=== PATIENT | female | born 2000 | race Hispanic/Latino ===

== ENCOUNTER → 2024-10-17 10:23 | Outpatient (CLI) | payer OTHER, SELFPAY ==
[2024-10-17 12:00] LABS: Natera Collection Specimen Collected
[2024-10-17 12:06] LABS: Add Manual Diff / Slide Review NO; Basophils Absolute Auto 0 /uL (0-100); Basophils Percent Auto 0.5 % (0-2); Eosinophils Absolute Auto 100 /uL (0-450); Eosinophils Percent Auto 1.2 % (2-4); Hemoglobin 12.6 g/dL (12.0-16.0); Lymphocytes Absolute Auto 2400 /uL (1100-4500); Lymphocytes Percent Auto 26.7 % (25-40); Mean Corpuscular HGB Conc 36.1 % (30-36); Mean Corpuscular Hemoglobin 33.4 PG (26-34); Mean Corpuscular Volume 92.3 fL (80-100); Monocytes Absolute Auto 600 /uL (0-900); Monocytes Percent Auto 6.4 % (3-14); Neutrophils Absolute Auto 5800 /uL (1500-7000); Neutrophils Percent Auto 65.2 % (50-75); Platelet Count 254 X10^3/uL (150-400); Red Blood Cell Count 3.79 X10^6/uL (4.0-5.2); Red Cell Distribution Width 12.6 % (11.6-14.8)
[2024-10-18 15:19] LABS: Hepatitis B Surface Antigen NEGATIVE s/c (NEGATIVE); Rubella Antibody IgG 37.2 IU/mL (>15)
[2024-10-18 15:35] LABS: HIV 1 & 2 Ab/Ag 4th Gen Combo NEGATIVE (NEGATIVE); Hep C Virus Ab w/Reflex Quant NEGATIVE s/c (NEGATIVE)
[2024-10-19 03:36] LABS: Varicella IgG Antibody Reactive (Non Reactive)
== END ==
PROVIDERS: PCP Family Medicine; Referring Provider Family Medicine; Visit Provider Student in an Organized Health Care Education/Training Program
DX: Z34.01 Encounter for supervision of normal first pregnancy, first trimester (principal); Z36.0 Encounter for antenatal screening for chromosomal anomalies
CPT/HCPCS: 36415; 80055; 86787; 86803; 86850; 86900; 86901; 87086; 87389

== ENCOUNTER → 2024-11-16 08:25 | Outpatient (CLI) | payer OTHER, SELFPAY ==
[2024-11-18 19:10] LABS: Gest Age on Col Date 16.3 weeks (.); OSBR Risk 1IN 6916 (.)
== END ==
PROVIDERS: PCP Family Medicine; Referring Provider Obstetrics & Gynecology; Visit Provider Obstetrics & Gynecology
DX: Z34.02 Encounter for supervision of normal first pregnancy, second trimester (principal); Z3A.16 16 weeks gestation of pregnancy
CPT/HCPCS: 36415; 82105

== ENCOUNTER → 2024-12-13 08:28 | Outpatient (CLI) | payer OTHER, SELFPAY ==
--- NOTE | 2024-12-13 08:29 | DI.US.S_ITS ---
PROCEDURE: US OB >= 14 WEEKS FETUS INDICATIONS: ANATOMY OUTSIDE/PRIOR DATING DATA: Last menstrual period (LMP): July 26, 2019. LMP-based estimated date of delivery (JUDITH): May 01, 2025. TECHNIQUE: Real-time scanning was performed of the fetus, with image documentation and biometric measurements. Endovaginal scanning: Not performed COMPARISON: [facility], , OB <= 14 WEEKS FETUS, 10/17/2024, 10:28. FINDINGS: General: A single living intrauterine gestation is present. Presentation: Breech. Placenta: Placental position is posterior , without previa. Amniotic fluid index: 16.1 cm, normal range is 5-24 cm. Single deepest vertical pocket is 4.8 cm. heart rate: 145 beats per minute. Maternal cervical canal: 2.7 cm long. Normal lower limit is 2.5 cm. biometrics: Biparietal diameter: 4.6 cm, 20 weeks and 0 days Head circumference: 16.8 cm, 19 weeks and 3 days Abdominal circumference: 15.4 cm, 20 weeks and 4 days Femur length: 3.1 cm, 19 weeks and 5 days Clinically estimated gestational age: 20 weeks and 1 day Composite gestational age from present scan: 20 weeks and 0 days Estimated weight and percentile: 331 g, 42nd percentile Anatomic survey: Neuro: Ventricles are non-dilated at less than 10 mm. Cisterna magna is normal at 3-11 mm. Cerebellum is normal in size and morphology. Nuchal skin fold: Normal at less than 6 mm between 14-21 weeks gestational age. Face: Nose and lips, facial profile are normal. Spine: No evidence for spina bifida. Heart: 4-chambered heart is present, with normal ventricular outflow tracts. Diaphragm: Diaphragm is intact. Stomach: Left-sided stomach is present. Kidneys: No hydronephrosis. Normal is less than 5 mm in 2nd trimester, less than 7 mm in 3rd trimester. Cord: 3-vessel cord has orthotopic insertion. Bladder: Normal in size. Extremities: All 4 extremities identified. IMPRESSION: Single living intrauterine gestation with estimated sonographic gestational age of approximately 20 weeks and 0 days with estimated weight of approximately 331 g (42nd percentile). Normal routine second-trimester anatomy screening survey. We strive to produce accurate, complete, and clear reports of imaging services. To assist us in improving patient care, this report was composed using standard report templates and voice recognition software. Therefore, it may contain abnormal punctuation, insertions and/or omissions. Occasional wrong-word or sound-alike substitutions may occur. Though we review the report and make efforts to correct it, we do recommend that the report be read carefully in proper context to recognize any text inaccuracies. Dictated by: Crescencio Joe M.D. on 12/13/2024 at 17:29 Approved by: Crescencio Joe M.D. on 12/13/2024 at 17:32
== END ==
LOC: US 08:29
PROVIDERS: PCP Family Medicine; Referring Provider Student in an Organized Health Care Education/Training Program; Visit Provider Obstetrics & Gynecology
DX: Z34.02 Encounter for supervision of normal first pregnancy, second trimester (principal); Z3A.20 20 weeks gestation of pregnancy
CPT/HCPCS: 76811

== ENCOUNTER → 2025-01-16 08:14 | Outpatient (CLI) | payer OTHER, SELFPAY ==
[2025-01-16 09:29] LABS: Glucose Fasting Gestational 84 mg/dL (76-95)
[2025-01-16 10:24] LABS: Glucose 1 Hour Gest 181 mg/dL (76-180)
[2025-01-16 11:13] LABS: Glucose 2 Hour Gest 176 mg/dL (76-155)
[2025-01-16 11:26] LABS: Glucose Tol Interp,Gestational INTERPRETATION
[2025-01-16 12:36] LABS: Glucose 3 Hour Gest 153 mg/dL (76-140)
== END ==
PROVIDERS: PCP Family Medicine; Referring Provider Obstetrics & Gynecology; Visit Provider Obstetrics & Gynecology
DX: R73.09 Other abnormal glucose (principal)
CPT/HCPCS: 36415; 82951; 82952

== ENCOUNTER → 2025-02-03 14:03 | Outpatient (CLI) | payer OTHER, SELFPAY ==
--- NOTE | 2025-02-03 17:12 | DIAB.GDA ---
Initial Gestational Diabetes Assessment Name: Kirti Gann Date: 02/03/25 Time: 210-3p Dx: Gestational Diabetes Provider: Rito/Monae JUDITH: 05/01/25 Weeks: 27-28 Valeria presents for initial GDm visit, accompanied by her mother, Maru. Endorses rich h/o T2DM and GDM. Mother had GDM with 2/3 of her pregnancies. Reports occasional nausea r/t Dec 2023 appendix burst. Was hospitalized. Endorses feeling shaky, foggy, lightheaded, weak with BG in the 70-88mg/dl. Unclear if this is r/t long periods of fasting and/or rebound lows after elevations based on her diet recall of sweetened beverages at times. States she is trying to spread out and eat more frequently to avoid symptoms. May benefit a CGM sample. Moving in with mother, which has increased eating out at this time with moving duties. Diet Recall: 1030a: 4oz orange juice, 1oz cereal dry, applesauce grazing snacks: cashews, jerkey, apple and pb 105p: slice of pizza, snack pack with nuts/cheese/ fruit grazing snacks: same as above 6p: hamburger helper x 1c with salad and 6oz regular soda OR Burger with small or medium ladd +/- small soda or shake 12a: apple sauce cashews, jerky water 32-48oz protein shake 1 per day sometimes 12-16oz sweetened coffee Choosing oatmilk over lactose milk. with lactose allergy Anthropometrics: Ht: 61 Wt: 132# 01/2025 Prepregnancy wt: 106# Physical Activity: Not discussed today. Reported walking 5 days per week in paperwork. Self-Monitoring Blood Glucose: Checking FBg and 2 hour pc. Wakes up late and often misses the first meal/reading. All in goal. Date Pre Post Pre Post Pre Post HS 01/31 83 111 96 02/01 90 110 102 02/02 77 118 101 02/03 93 91 Diabetes Medications: none Pertinent Labs: Screen: 156 H OGTT: 84, 181 H, 176H, 153H Nutrition Rx: Carbohydrates: Meal: 45-60g lunch and dinner; 30-45 breakfast Snack: 15-30g Nutrition Diagnosis: Altered nutrition related lab value r/t GDM dx aeb recent OGTT Undesireable food choices r/t beverage choices aeb diet recall with regular soda intake Nutrition and food related knowledge deficit r/t newly dx GDm aeb OGTT and pt report Intervention: This participant was very receptive. Provided appropriate educational handouts. Discussed the following topics: GDM pathophysiology and impact of hyperglycemia on mom and baby Risk for T2DM for mom and baby in the future Ways to reduce risk T2DM Plate Method, meal timing, carb counting, pairing macronutrients and spreading out CHO for better BG management Blood glucose goals (FBG: <95 and 1 hour <140 mg/dL or 1 hour <120 mg/dl); importance of checking (FBG and pc) Impact of macronutrients on blood glucose Recommended servings for carbohydrates at meals and snacks Brainstormed appropriate meal plan based on her food preferences Role of physical activity and following provider guidelines for safety Goals: Add protein to breakfast consistently Avoid sweetened beverages Follow-up: ISAIAH ASTUDILLO follow-up in one week Ngozi Mon RDN, BAUDILIO Certified Diabetes Care and Ecological Technical Officer T: [phone] F: [phone] [email or web address] Thank you for this referral
== END ==
LOC: DIET 14:04
PROVIDERS: PCP Family Medicine; Referring Provider Obstetrics & Gynecology
DX: O24.419 Gestational diabetes mellitus in pregnancy, unspecified control (principal); Z71.3 Dietary counseling and surveillance; Z3A.27 27 weeks gestation of pregnancy; Z83.3 Family history of diabetes mellitus
CPT/HCPCS: 97802

== ENCOUNTER → 2025-02-08 12:51 | Outpatient (CLI) | payer OTHER, SELFPAY ==
--- NOTE | 2025-02-09 11:14 | DIAB.GDFU ---
Follow-up Gestational Diabetes Assessment Name: Kirti Gann Date: 02/08/25 Time: 105-150p Dx: Gestational Diabetes Provider: Monae JUDITH: 05/01/25 Weeks: 28 Valeria presents for GDm visit, accompanied by her mother, Maru. Endorses rich h/o T2DM and GDM. Mother had GDM with 2/3 of her pregnancies. Reports today is her last day of moving. With moving there has been more eating out. When BG is elevated postprandially it is r/t eating out. States she has not noticed any difference in how she feels or BG with or without sugar beverages. Did have elevation after chicken fast food meal and soda intake. Has added protein to breakfast. Had an episode of BG of 145mg/dl 10 min after breakfast and felt fatigue and dizzy (parfait breakfast purchased on the go) Diet Recall: 1030a: 4oz orange juice, eggs or sausage OR pb toast grazing snacks: cashews, jerkey, apple and pb 1-2p: eating out OR sandwich BLT with fruit or chips or apple sauce grazing snacks: same as above 6p: eating out or hamburger or steak OR lean cuisine frozen meal OR spinach cheese spanakopita 12a: apple sauce cashews, jerky water 32-48oz protein shake 1 per day sometimes 12-16oz sweetened coffee Choosing oatmilk over lactose milk. with lactose allergy Anthropometrics: Ht: 61 Wt: 132# 01/2025 Prepregnancy wt: 106# Physical Activity: Not discussed today. Reported walking 5 days per week in paperwork. Self-Monitoring Blood Glucose: Checking FBg and 2 hour pc. All FBG in goal. Two missing FBG due to not fasting after late snack. Elevations often r/t eating out. One was after protein shake, but RD speculates that earlier morning snacks may have caused the 139mg/dl. Interested in CGm sample to see how sugar beverages impact BG . Today Date Pre Post Pre Post Pre Post HS 02/03 93 91 02/04 85 86 139 103 02/05 80 95 92 02/06 89 145 95 128 02/07 125 111 02/08 84 131 Last Visit Date Pre Post Pre Post Pre Post HS 01/31 83 111 96 02/01 90 110 102 02/02 77 118 101 02/03 93 91 Diabetes Medications: none Pertinent Labs: Screen: 156 H OGTT: 84, 181 H, 176H, 153H Nutrition Rx: Carbohydrates: Meal: 45-60g lunch and dinner; 30-45 breakfast Snack: 15-30g Nutrition Diagnosis: Altered nutrition related lab value r/t GDM dx aeb recent OGTT Undesireable food choices r/t beverage choices aeb diet recall with regular soda intake- in progress Nutrition and food related knowledge deficit r/t newly dx GDm aeb OGTT and pt report - in progress Excessive CHO intake r/t eating out for convenience while moving aeb pt report and BG log Intervention: This participant was very receptive. Provided appropriate educational handouts. Discussed the following topics: Recommended servings for carbohydrates at meals and snacks Label reading for net CHO Eating out options and impact on BG Encouraged food log when BG over goal CGM education, precautions, and use Impact of sugar beverages on BG Goals: Add protein to breakfast consistently - met Avoid sweetened beverages - in progress Limit eating out- new Write down food when BG elevated- new Try CGM sample- new Follow-up: ISAIAH ASTUDILLO follow-up in one week remotely and in 2 weeks in person Ngozi Mon RDN, BAUDILIO Certified Diabetes Care and Joint Sealer T: [phone] F: [phone] [email or web address] Thank you for this referral
== END ==
LOC: DIET 12:52
PROVIDERS: PCP Family Medicine; Referring Provider Family Medicine
DX: O24.419 Gestational diabetes mellitus in pregnancy, unspecified control (principal); Z3A.28 28 weeks gestation of pregnancy; Z83.3 Family history of diabetes mellitus
CPT/HCPCS: 97803

== ENCOUNTER 2025-02-15 19:26 | Observation (INO) | payer OTHER, SELFPAY ==
--- NOTE | 2025-02-15 20:10 | P.HPOB_ITS ---
OB HPI Date/Time Date of admission: 02/15/25 Date Patient Seen: 02/15/25 Time Patient Seen: 20:11 History of Present Condition Chief complaint: possible early labor JUDITH Calculator 2 Estimated Delivery Date Method Current WG Current Estimate 05/01/25 LMP (Certain) 29w 2d Other Estimates 05/01/25 Ultrasound #1 29w 2d Estimated Gestational Age (weeks): 29.2 : 1 Narrative: Patient is a 24yo G1 @ 29w2d presents to L&D with cramping/contractions that started yesterday and noticed increased discharge today. denies Leaking of fluid, vaginal bleedig and reports good movement. denies dysuria, hematuria, frequency. denies fevers/chills. care: good care Dating criteria OB: LMP confirmed by 1st trimester US Ultrasounds: normal mid trimester US Obstetrical complications: gestational diabetes Medical complications OB: psychiatric (depression/anxiety) Preadmission Labs Last OB Lab Results: 2 Blood Type A Positive 10/17/24, 11:00 Antibody Screen Negative 10/17/24, 11:00 Hct, (36-46) 35.3 % L Today, 20:55 Hgb, (12.0-16.0) 12.1 g/dL Today, 20:55 Hep Bs Antigen, (NEGATIVE) Negative s/c 10/17/24, 11: 00 Hepatitis C Antibody, (NEGATIVE) Negative s/c 5, 11:00 Rubella Antibody, (>15) 37.2 IU/mL 10/17/24, 11:00 VZV IgG Antibody, (Non Reactive) Reactive 5, 11:00 Glucose 1 Hr 50 gm, (76-139) 156 mg/dL H 01/10/25, 1 0:38 -: Chlamydia screen: unknown and Gonorrhea screen: unknown Genetic Screens: Cell-free DNA: Normal Evaluation Evaluation Baseline heart rate: 145 Variability: Moderate (6-25) monitor accelerations: Present Monitor Decelerations: Absent Contraction Frequency (minutes): 3 Uterine Contraction Intensity: Mild Category of Tracing: Reactive Status: Category l Dilation (cm): 0 Effacement (%): 60 Dilation: Closed Effacement: 60-70% station: -3 Position of cervix: mid Consistency: medium Vu score: 4 [facility] Medical History (Updated 02/07/25 @ 16:54 by Katie Mcwilliams DO) Factor 5 Leiden mutation, heterozygous Ruptured appendix (~12/2023) Surgical History (Updated 08/30/24 @ 10:09 by Jacinta Chang RN) History of appendectomy Family History (Updated 08/30/24 @ 10:21 by Jacinta Chang, RN) Mother Diabetes mellitus Ovarian cyst Gestational diabetes Grandmother Pacemaker Diabetes mellitus Family/Other Diabetes mellitus Father Diabetes mellitus Hypertension Aunt Ectopic Grandmother Factor V Leiden Social History marital status: number of children: 0 household members: spouse and friend(s) lives independently: Yes caregiver/support person: No housing: [facility]) pets and animals: Yes (cats, dog) education level: high school 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[employer]) current occupational exposures/hazards: No special emili needs: No travel history: recent (domestic only) seatbelt use: always water heater temp set < 120 deg: Yes working smoke detector in home: Yes fire extinguisher in home: Yes carbon monox detector in home: Yes firearms in home: No do you feel safe at home: Yes second hand exposure: No alcohol intake: former (very occasionally when not ) substance use type: does not use during the past year weight has: decreased > 10 lbs (lost ~15 lb w/ appendicitis, back to around baseline now) well-balanced diet: about half the time daily servings fruits/ve-4 caffeine: Yes (occasional dirty maria e (1 shot espresso in maria e latte)) Type(s) of exercise: walking frequency: daily Meds Home Medications and Allergies Home Medications ?Medication ?Instructions ?Recorded ?Confirmed ?Type [id number] 400 mcg-om3 35 mg-dha 25 tab PO 08/30/24/ History mg-epa 5 mg-fish oil chewable tablet quetiapine 25 mg tablet 25 mg PO BEDTIME 08/30/24 History metoclopramide HCl 5 mg tablet 5 mg PO QACHS PRN nause a and 09/04/24 01/10/25 Rx vomiting #30 tabs ondansetron 8 mg disintegrating 8 mg PO Q8H PRN nausea and 11/16/24 01/10/25 Rx tablet vomiting #20 tabs blood sugar diagnostic (Blood #120 ea 01/30/25 Rx Glucose Test strips) blood-glucose meter (Blood Glucose #1 ea 01/30/25 Rx Monitoring kit) lancets #120 ea 01/30/25 Rx sertraline 50 mg tablet 50 mg PO DAILY 30 days #30 t abs 02/07/25 02/07/25 Rx Allergies Allergy/AdvReac Type Severity Reaction Status Date / Time prazosin Allergy Severe Swelling Verified 01/10/25 08:46 of Lip/Tongue/Throat hydrocodone AdvReac Severe Vomiting Verified 01/10/25 08:46 oxycodone AdvReac Severe Vomiting Verified 01/10/25 08:46 citalopram AdvReac Mild Nightmare Verified 01/10/25 08:46 fig Allergy Intermediate Hives Uncoded 01/10/25 08:46 OB Exam Narrative Exam Narrative: General- AAO x3, NAD-- resting comfortably but feeling contractions- mildly fundus- gravid, nontender cervix- 0/60/-3, mid position, medium consistency Objective Labs 02/15/25 20:55 Assessment and Plan Assessment and Plan Assessment and Plan narrative: Shamika is a 24yo G1 @ 29w2d presents to L&D with cramping and increased discharge. 1. contractions- admit to L&D - cervix- 0/60/-3 - contractions q 3 mins on toco- patient feels them mildly - start BMTZ for lung maturity - Magnesium for neuroprotection - Indocin 50mg PO for tocolysis - plan to start these interventions and repeat exam in 1-2 hours-- if cervical change will start ampicillin and contact maternal transport team to transfer to a higher level NICU - no s/s of infection at this time, UA/urine culture and urine Gc/ct sent 2. IUP at 29w2d - BSUS -- vertex, active fetus, normal fluid, posterior/fundal placenta, EFW- 1137gm, 2lb 8oz 2. GDMA1 - recent diagnosis, has not yet started checking glucose levels 3. Factor V leiden heterozygous - no personal history of blood clots, tested due to family history - SCDs while in bed, if prolonged bed rest consider lovenox 4. Anxiety/depression - recent diagnosis, started on sertraline 50mg daily. --patient has not yet started this. dispo- continue to monitor, plan to recheck cervix in 1-2 hours-- if any cervical change will start maternal transport Time-Based Coding :: [TOTAL MINUTES] spent with patient and on the chart (including review of chart, obtaining history, exam, reviewing outside data, placing orders, documenting exam and treatment plan, and counseling patient) on [DATE].
[2025-02-15] MEDS: INDOMETHACIN 25 MG CAPSULE 50 MG PO (20:15)
[2025-02-15] MEDS: BETAMETHASONE 30 MG/5 ML MDV 12 MG IM (20:26)
[2025-02-15] MEDS: MAGNESIUM SULFATE 4 GM/100 ML PIGGYBACK IV (21:09)
[2025-02-15 21:26] LABS: Add Manual Diff / Slide Review NO; Hematocrit 35.3 % (36-46); Hemoglobin 12.1 g/dL (12.0-16.0); Lymphocytes Absolute Auto 1600 /uL (1100-4500); Mean Corpuscular HGB Conc 34.3 % (30-36); Mean Corpuscular Hemoglobin 33.0 PG (26-34); Mean Corpuscular Volume 96.1 fL (80-100); Platelet Count 297 X10^3/uL (150-400)
[2025-02-15] MEDS: ONDANSETRON 4 MG/2 ML INJ IV (21:48)
[2025-02-15] MEDS: MAGNESIUM SULFATE 20 GM/500 ML IV.SOLN IV (22:12)
[2025-02-15 22:32] LABS: Appearance Urine UA SL CLOUDY; Bilirubin Urine UA NEGATIVE (NEGATIVE); Color Urine UA YELLOW; Glucose Urine UA NEGATIVE (Negative); Ketones Urine UA 1+ (NEGATIVE); Leukocyte Esterase Urine UA 1+ (NEGATIVE); Nitrite Urine UA NEGATIVE (Negative); Occult Blood Urine UA TRACE-INTACT (Negative); Protein Urine UA TRACE (Negative); Specific Gravity Urine UA 1.020 (1.000-1.035); Urobilinogen Urine UA 0.2 E.U./dL (0.2)
[2025-02-15 22:35] LABS: pH Urine UA 6.0 (4.5-8.0)
[2025-02-15 22:45] LABS: Culture Indicated Urine Specimen Cultured
--- NOTE | 2025-02-15 23:44 | PM.OBDS.1 ---
Discharge Providers Provider Date of admission: 02/15/25 19:26 Discharge Date: 02/15/25 Primary care physician: Georgiana Gorman MD Discharge provider: Katie Mcwilliams DO Summary Hospital Course Date Patient Seen: 02/15/25 Time Patient Seen: 23:44 Diagnoses: Threatened labor Hospital Course: Patient is a 24o G1 @ 29w2d presented to L&D with contractions/cramping that started yesterday evening (02/14), they increased today and she started feeling increased pelvic pressure and increased vaginal discharge which is why she presented to the hospital. She was evaluated and noted to have contractionsevery 2-3 minutes on presentation. Cervical exam- 0/60/-3. Of note - patient with known short cervix previously diagnosed in clinic. Patient started on BMTZ for lung maturity- given 12mg IM dose at 2025. Started on Magnesium for neuroprotection and Indocin for tocolysis around the same time. Cervix was recheck at 2 hours and unchanged. BSUS performed for EFW- 2lb 8oz. vertex presentation, normal amniotic fluid. Due to the short cervix with painful contractions and descent of the head-- Decision was made to transport patient to a hospital with a NICU able to manage a 29wk infant in the case of pogressing to delivery. Maternal transport team contacted and patient accepted at [facility] by Dr. Chua. Patient will be transported by ambulance on magnesium and indocin. Time Spent with Patient Time attestation: Total time spent providing and/or coordinating discharge services: Objective Labs 02/15/25 20:55 Labs: Laboratory Results - last 24 hr 02/15/25 02/15/25 02/15/25 20:50 20:55 22:00 WBC 14.5 H RBC 3.68 L Hgb 12.1 Hct 35.3 L MCV 96.1 MCH 33.0 MCHC 34.3 RDW 12.7 Plt Count 297 Neut % (Auto) 83.5 H Lymph % (Auto) 11.1 L [place] % (Auto) 4.6 Eos % (Auto) 0.4 L Baso % (Auto) 0.4 Neut # (Auto) 17115 H Lymph # (Auto) 1600 [place] # (Auto) 700 Eos # (Auto) 100 Baso # (Auto) 100 Urine Color Yellow Urine Appearance Sl cloudy Urine pH 6.0 Ur Specific [place] 1.020 Urine Protein Trace H Urine Glucose (UA) Negative Urine Ketones 1+ H Urine Occult Blood Trace-intact Urine Nitrate Negative Urine Bilirubin Negative Urine Urobilinogen 0.2 Ur Leukocyte Esterase 1+ H Urine RBC 0-1/hpf Urine WBC 1-5/hpf Ur Squamous Epith Cells 1-5 /hpf Calcium Oxalate Crystal Few H Urine Bacteria Moderate (10-30) H Ur Culture Indicated? Specimen cultured Vol Urine Centrifuged 10ml (spun) Blood Type A Positive Antibody Screen Negative Exam Narrative Exam Narrative: - cervix- 0/60/-3, medium consistency, mid position Const General: cooperative, healthy appearing and comfortable Orientation: alert, awake and oriented x3 Neuro Speech: speech normal Discharge Plan Discharge Plan Patient Disposition: [facility] Other facility: [facility] Under care of provider: Dr. Demetris Chua Visit Report/Discharge Packet Stand Alone Forms: Patient Portal/API, Stroke Signs & Symptoms Discharge Data Primary Care Provider: Georgiana Gorman Attending Provider: Katie Mcwilliams Admit Date/Time: 02/15/25 19:26
== END 2025-02-16 01:39 | disposition short-term general hospital (02) ==
PROVIDERS: Admitting Provider Obstetrics & Gynecology; PCP Family Medicine; Referring Provider Obstetrics & Gynecology; Visit Provider Obstetrics & Gynecology
DX: O60.03 Preterm labor without delivery, third trimester (principal); O24.419 Gestational diabetes mellitus in pregnancy, unspecified control; O99.113 Other diseases of the blood and blood-forming organs and certain disorders involving the immune mechanism complicating pregnancy, third trimester; D68.51 Activated protein C resistance; O99.343 Other mental disorders complicating pregnancy, third trimester; F32.A Depression, unspecified; F41.9 Anxiety disorder, unspecified; Z3A.29 29 weeks gestation of pregnancy
CPT/HCPCS: 36415; 59025; 59050; 76815; 80053; 81003; 81015; 85025; 86850; 86900; 86901; 87086; 96360; 96372; 99234; G0378; G0379; J0702; J2405; J3475

== ENCOUNTER → 2025-02-21 16:38 | Outpatient (CLI) | payer OTHER, SELFPAY ==
--- NOTE | 2025-02-21 17:24 | DIAB.GDFU ---
Follow-up Gestational Diabetes Assessment Name: Kirti Gann Date: 02/21/25 Time: 449-515p Dx: Gestational Diabetes Provider: Monae JUDITH: 05/01/25 Weeks: 30 Valeria presents for GDm visit, accompanied by her mother, Maru. Endorses rich family h/o T2DM and GDM. Mother had GDM with 2/3 of her pregnancies. Recent steroid treatment after having contractions seemingly r/t infection reported by pt. This steroid tx impacted BG over 2-3 days with BG over 180mg/dl consistently. Over the last 2-3 days BG have come down significantly, more in goal. Endorses now medicated for yeast and bacterial infection. Has reduced sugared beverages, however sips on soda when feeling unwell or when taking meds that cause metallic taste. Endorses poor sleep, which she has noticed impacts BG. States sleep disturbances are r/t feeling uncomfortable at night or anxiety. Plans to start medication to manage anxiety, discussed today with OB per report. States she is unsure how to get vitamin c with iron supplement without drinking juice. Diet Recall: 1030a: parfait with way OR protein Romansh toast with sf syrup and way OR low CHO cereal OR pb toast 1-2p: Small sandwich OR protein lunch pack with crackers, pb and apples 3-4p: veggies OR crackers with spinach dip or pb OR cashews and popcorn 6p: Chicken OR hot dog OR hamburger 12a: Keto protein bar and cashews OR popcorn water protein shake SF oat milk Swiss soda Sips of soda Diet soda SF flavored water Choosing oatmilk over lactose milk. with lactose allergy Anthropometrics: Ht: 61 Wt: 143# 02/2025 132# 01/2025 Prepregnancy wt: 106# Physical Activity: Limited and worries about pre term labor with baby carrying low per report. Self-Monitoring Blood Glucose: Checking FBg and 2 hour pc. FBG improved since steroid tx has worn off. Some elevations after meals r/t to sugar beverages. Anticipate improved BG with d/c of sugar beverages and time away from steroid tx period. Today Date Pre Post Pre Post Pre Post HS 02/15 80 181 130 02/16 >180 all day with steroid tx 02/17 176 125 167 02/18 101 126 121 02/19 85 102 99 02/20 99 not fasting- snacks 101 125 02/21 80 101 Last Visit Date Pre Post Pre Post Pre Post HS 02/03 93 91 02/04 85 86 139 103 02/05 80 95 92 02/06 89 145 95 128 02/07 125 111 02/08 84 131 Diabetes Medications: none Pertinent Labs: Screen: 156 H OGTT: 84, 181 H, 176H, 153H Nutrition Rx: Carbohydrates: Meal: 45-60g lunch and dinner; 30-45 breakfast Snack: 15-30g Nutrition Diagnosis: Altered nutrition related lab value r/t GDM dx aeb recent OGTT Undesireable food choices r/t beverage choices aeb diet recall with regular soda intake- in progress/improved Nutrition and food related knowledge deficit r/t newly dx GDm aeb OGTT and pt report - in progress Excessive CHO intake r/t eating out for convenience while moving aeb pt report and BG log -- improved Intervention: This participant was very receptive. Provided appropriate educational handouts. Discussed the following topics: Encouraged avoiding sugar beverages during Reviewed Bg and impact of steroid tx Discussed vitamin c foods outside of juice Encouraged protein with meals/snacks Goals: Limit eating out- met Write down food when BG elevated- met Try CGM sample- met Check BG after oat sf Swiss soda- new Try applesauce with medication- new Try applesauce or fruit with iron supplement- new Follow-up: ISAIAH ASTUDILLO follow-up in 2 weeks or sooner prn. Ngozi Mon RDN, BAUDILIO Certified Diabetes Care and Piling Cutter T: [phone] F: [phone] [email or web address] Thank you for this referral
== END ==
LOC: DIET 16:38
PROVIDERS: PCP Family Medicine; Referring Provider Obstetrics & Gynecology
DX: O24.419 Gestational diabetes mellitus in pregnancy, unspecified control (principal); Z3A.30 30 weeks gestation of pregnancy; Z83.3 Family history of diabetes mellitus; Z71.3 Dietary counseling and surveillance
CPT/HCPCS: 97803

== ENCOUNTER → 2025-03-08 11:42 | Outpatient (CLI) | payer OTHER, SELFPAY ==
--- NOTE | 2025-03-08 11:57 | DIAB.GDFU ---
Follow-up Gestational Diabetes Assessment Name: Kirti Gann Date: 03/08/25 Time: 12-1230p Dx: Gestational Diabetes Provider: Monae JUDITH: 05/01/25 Weeks: 32 Valeria presents for GDm visit, accompanied by her , Bonilla. Endorses rich family h/o T2DM and GDM. Mother had GDM with 2/3 of her pregnancies. Endorses regular snack around 2am and sometimes at 5-6am r/t feeling shaky or nausea. This has seemingly impacted first finger stick of the day. States when she does not have a snack her FBG are in the 80s. Saw OB and no plans for GDM related meds. Cut out sugar beverages. Mostly snacking vs eating full meals. Drinking SF beverages and water. checked BG after sf Tajik soda with oat milk and was in the 90s per report. Taking iron with fruit vs juice. Plans to attend classes in Mar. Anthropometrics: Ht: 61 Wt: 150# 02/2025 143# 02/2025 132# 01/2025 Prepregnancy wt: 106# Physical Activity: Limited and worries about pre term labor with baby carrying low per report. Trying to be more active in general lately. Self-Monitoring Blood Glucose: Checking FBg and 2 hour pc. FBG may not be true fasting due to late snacking. All pc reading in goal except one. Improved from last visit. Today Date Pre Post Pre Post Pre Post HS 03/02 98 102 140 1hr 95 03/03 90 139 1hr 126 03/04 97 99 90 03/05 129 106 03/06 87 93 106 03/07 98 113 137 1hr 03/08 81 Last Visit Date Pre Post Pre Post Pre Post HS 02/15 80 181 130 02/16 >180 all day with steroid tx 02/17 176 125 167 02/18 101 126 121 02/19 85 102 99 02/20 99not fasting- snacks 101 125 02/21 80 101 Diabetes Medications: none Pertinent Labs: Screen: 156 H OGTT: 84, 181 H, 176H, 153H Nutrition Rx: Carbohydrates: Meal: 45-60g lunch and dinner; 30-45 breakfast Snack: 15-30g Nutrition Diagnosis: Altered nutrition related lab value r/t GDM dx aeb recent OGTT Undesireable food choices r/t beverage choices aeb diet recall with regular soda intake- improved Nutrition and food related knowledge deficit r/t newly dx GDm aeb OGTT and pt report - improved Excessive CHO intake r/t eating out for convenience while moving aeb pt report and BG log -- improved Intervention: This participant was very receptive. Provided appropriate educational handouts. Discussed the following topics: Recent blood sugar results and impact of food and hormones Review of macronutrient recommendations during Benefits, resources, and nutrition for recommendations for nutrition and physical activity recommendations for T2DM risk reduction? - OGTT at 6-12 weeks - Checking blood sugars twice per week (goal: fasting <100 mg/dL and 2 hour pc <140 mg/dL) until 6 week check-up - HgA1c q 1-3 years. Encouraged continued d/c of sugar beverages Goals: Check BG after oat sf Tajik soda- met Try applesauce with medication- d/c Try applesauce or fruit with iron supplement- met Send BG in 2 weeks for review- new Follow recs for GDM, as discussed- new Follow-up: ISAIAH ASTUDILLO follow-up in 2 weeks remotely and then prn Ngozi Mon RDN, BAUDILIO Certified Diabetes Care and Inhalation Therapy Teacher T: [phone] F: [phone] [email or web address] Thank you for this referral
== END ==
LOC: DIET 11:42
PROVIDERS: PCP Family Medicine; Referring Provider Obstetrics & Gynecology
DX: O24.419 Gestational diabetes mellitus in pregnancy, unspecified control (principal); Z3A.32 32 weeks gestation of pregnancy; Z71.3 Dietary counseling and surveillance; Z83.3 Family history of diabetes mellitus
CPT/HCPCS: 97803

== ENCOUNTER 2025-03-24 12:06 | Observation (INO) | payer OTHER, SELFPAY ==
--- NOTE | 2025-03-24 12:47 | DI.US.S_ITS ---
PROCEDURE: US OB BIOPHYSICAL PROFILE INDICATIONS: Decreased movement OUTSIDE/PRIOR DATING DATA: Last menstrual period (LMP): 07/25/2024. LMP-based estimated date of delivery (JUDITH): 05/01/2025. TECHNIQUE: Real-time scanning was performed of the fetus, with image documentation and biometric measurements. Biophysical profile was also obtained. Endovaginal scanning: Not done COMPARISON: [facility], , US OB >= 14 WEEKS FETUS, 12/13/2024, 15:51. [facility], , US OB >= 14 WEEKS FETUS, 12/13/2024, 9:09. [facility], , US OB <= 14 WEEKS FETUS, 10/17/2024, 10:28. [facility], , OB <= 14 WEEKS FETUS, 09/19/2024, 9:28. FINDINGS: General: A single live intrauterine gestation is present. Presentation: Vertex. Placenta: Placental position is posterior/left, without previa. Amniotic fluid index: 14.2 cm, normal range is 5-24 cm. Single deepest vertical pocket is 4.1 cm. heart rate: 150 beats per minute. Maternal cervical canal: Not seen. biometrics: Biparietal diameter: 8.4 cm equals 33 weeks 6 days Head circumference: 29.9 cm equals 33 weeks 1 day Abdominal circumference: 30.2 cm equals 34 weeks 1 day Femur length: 6.5 cm equals 33 weeks 5 days Clinically estimated gestational age: 34 weeks 4 days Composite gestational age from present scan: 33 weeks 5 days Estimated weight and percentile: 2303 g 27th percentile Biophysical profile: Tone: 2 points. Movement: 2 points. Respiration: 2 points. Largest pocket of fluid: 2 points. IMPRESSION: Normal biophysical profile, 8/8 points. Normal interval growth when compared to the prior ultrasound examination. We strive to produce accurate, complete, and clear reports of imaging services. To assist us in improving patient care, this report was composed using standard report templates and voice recognition software. Therefore, it may contain abnormal punctuation, insertions and/or omissions. Occasional wrong-word or sound-alike substitutions may occur. Though we review the report and make efforts to correct it, we do recommend that the report be read carefully in proper context to recognize any text inaccuracies. Dictated by: Brendan Soto M.D. on 03/24/2025 at 14:25 Approved by: Brendan Soto M.D. on 03/24/2025 at 14:27
== END 2025-03-24 14:37 | disposition home or self-care (01) ==
PROVIDERS: Admitting Provider Obstetrics & Gynecology; PCP Family Medicine; Referring Provider Obstetrics & Gynecology; Visit Provider Obstetrics & Gynecology
DX: O36.8130 Decreased fetal movements, third trimester, not applicable or unspecified (principal); Z3A.34 34 weeks gestation of pregnancy
CPT/HCPCS: 59025; 59050; 76815; 76819; G0378; G0379

== ENCOUNTER → 2025-04-04 08:16 | Outpatient (CLI) | payer OTHER, SELFPAY ==
--- NOTE | 2025-04-04 08:19 | DIAB.GDFU ---
Follow-up Gestational Diabetes Assessment Name: Kirti Gann Date: 04/04/25 Time: 820-850a Dx: Gestational Diabetes Provider: Monae JUDITH: 05/01/25 Weeks: 36 Valeria presents for GDm visit, accompanied by her , Bonilla. Endorses rich family h/o T2DM and GDM. Mother had GDM with 2/3 of her pregnancies. Reports reduced CHO intake D/c of all sugar beverages Started NPH HS. Denies any questions relating to injections. FBG yesterday in goal, elevated number this morning due to up late snacking States sometimes snacking q 2 hours, which may contribute to elevated BG during day. Sees OB Rito today. Also US scheduled for today. Diet Recall: B: eggs way/sausage, protein shake and toast L: quesadilla with way OR apple with cheese and protein shake D: protein, veggies, 1/2c carbs sn: pb crackers or cashews or sf brownies, sf ice cream water, sf beverages Anthropometrics: Ht: 61 Wt: 157# 03/2025 150# 02/2025 143# 02/2025 132# 01/2025 Prepregnancy wt: 106# Physical Activity: not discussed Self-Monitoring Blood Glucose: Checking FBg and 2 hour pc. Increased BG over the last 1-2 weeks despite diet changes. May benefit from NPH BID. using CGM and RD asked her to continue to keep a log. Provided written log of recent BG to her to present to OB today. Today Date Pre Post Pre Post Pre Post HS 04/28 97 124 04/29 85 04/30 95 128 109 05/01 96 140 160 168 05/02 102 90 131 05/03 90 184 157 05/04 120 not FBG snacking Last Visit Date Pre Post Pre Post Pre Post HS 03/02 98 102 1401hr 95 03/03 90 1391hr 126 03/04 97 99 90 03/05 129 106 03/06 87 93 106 03/07 98 113 1371hr 03/08 81 Diabetes Medications: 20u NPH HS Pertinent Labs: Screen: 156 H OGTT: 84, 181 H, 176H, 153H Nutrition Rx: Carbohydrates: Meal: 45-60g lunch and dinner; 30-45 breakfast Snack: 15-30g Nutrition Diagnosis: Altered nutrition related lab value r/t GDM dx aeb recent OGTT Intervention: This participant was very receptive. Provided appropriate educational handouts. Discussed the following topics: Recent blood sugar results Review of sharps disposal Encouraged eating q 3-4 hours NPH injection sites and technique Discussed potential for addition of NPH BID or even meal time insulin prn Action and timing of NPH Goals: Send BG in 2 weeks for review- met Follow recs for GDM, as discussed- continue Eat q 3-4 hours vs 2 hours- new Dispose of Sharps safely- new Follow-up: ISAIAH ASTUDILLO follow-up in 1 week Ngozi Mon RDN, BAUDILIO Certified Diabetes Care and Net Maker T: [phone] F: [phone] [email or web address] Thank you for this referral
== END ==
LOC: DIET 08:17
PROVIDERS: PCP Family Medicine; Referring Provider Family Medicine
DX: O24.414 Gestational diabetes mellitus in pregnancy, insulin controlled (principal); Z3A.36 36 weeks gestation of pregnancy; Z71.3 Dietary counseling and surveillance
CPT/HCPCS: 97803

== ENCOUNTER → 2025-04-04 12:03 | Outpatient (CLI) | payer OTHER, SELFPAY ==
[2025-04-05 08:32] LABS: Strep Grp B PCR NEG for Grp B Strep
== END ==
PROVIDERS: PCP Family Medicine; Visit Provider Obstetrics & Gynecology
DX: Z36.85 Encounter for antenatal screening for Streptococcus B (principal)
CPT/HCPCS: 87653; 97803

== ENCOUNTER → 2025-04-10 15:10 | Outpatient (CLI) | payer OTHER, MEDICAID, SELFPAY | PROVIDERS: PCP Family Medicine; Visit Provider Obstetrics & Gynecology | DX: R31.9 Hematuria, unspecified (principal) | CPT/HCPCS: 87086 ==

== ENCOUNTER 2025-04-10 15:18 | Observation (INO) | payer OTHER, MEDICAID, SELFPAY ==
[2025-04-10 16:00] LABS: Add Manual Diff / Slide Review NO; Hematocrit 34.2 % (36-46); Hemoglobin 11.6 g/dL (12.0-16.0); Lymphocytes Absolute Auto 1600 /uL (1100-4500); Mean Corpuscular HGB Conc 33.9 % (30-36); Mean Corpuscular Hemoglobin 30.7 PG (26-34); Mean Corpuscular Volume 90.3 fL (80-100); Platelet Count 278 X10^3/uL (150-400)
[2025-04-10 16:01] LABS: Protein (Total) Urine Random 18 mg/dL (0-12); Protein Creatinine Ratio Urine 0.34 GRAM/24H
[2025-04-10 16:13] LABS: Alanine Aminotransferase 21 IU/L (<35); Albumin 3.5 g/dL (3.5-5.0); Albumin Globulin Ratio 1.0 (1.0-2.8); Alkaline Phosphatase 111 U/L (38-126); Blood Urea Nitrogen 11 mg/dL (7-17); Calcium 9.3 mg/dL (8.4-10.2); Carbon Dioxide 19 mmol/L (22-32); Chloride 108 mmol/L (98-107); Estimated Glomerular Filt Rate > 60 mL/min (>60); Globulin 3.4 g/dL (1.7-4.1); Glucose 78 mg/dL (70-99); HEMOLYSIS 33 (0-50); Potassium 4.1 mmol/L (3.4-5.1); Sodium 135 mmol/L (137-145); Total Protein 6.9 g/dL (6.3-8.2); Uric Acid 3.1 mg/dL (2.5-6.2)
--- NOTE | 2025-04-10 17:28 | PM.OBTRLD ---
Visit Information Visit Information Date of evaluation: 04/10/25 Primary OB Provider: Katie Mcwilliams On-call OB Provider: Katie Mcwilliams Reason for Evaluation: Yes non-stress test Comments/Additional reasons for admission: Patient is a 25yo G1 @ 37wks was sent from clinic for NST and BP monitoring/lab draw. NST already scheduled due to GDMA2 on insulin. Patient reported increased swelling of her LE/feet and hands that started over the weekend and has not improved with elevation. She also reports not feeling well in general and feeling short of breath at times as if she can't catch her breath. She does feel irregular contractions as well but talking through them and overall tolerable. denies headaches, scotomas, RUQ pain. baby moving well BPP -/8 in clinic prior to coming over to L&D [facility] Medical History (Updated 02/21/25 @ 19:56 by Katie Mcwilliams DO) Factor 5 Leiden mutation, heterozygous Ruptured appendix (~12/2023) Surgical History (Updated 08/30/24 @ 10:09 by Jacinta Chang, SUSU) History of appendectomy Family History (Updated 08/30/24 @ 10:21 by Jacinta Chang, SUSU) Mother Diabetes mellitus Ovarian cyst Gestational diabetes Grandmother Pacemaker Diabetes mellitus Family/Other Diabetes mellitus Father Diabetes mellitus Hypertension Aunt Ectopic Grandmother Factor V Leiden Social History marital status: number of children: 0 household members: spouse and friend(s) lives independently: Yes caregiver/support person: No housing: [facility]) pets and animals: Yes (cats, dog) education level: high school 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) current occupational exposures/hazards: No special emili needs: No travel history: recent (domestic only) seatbelt use: always water heater temp set < 120 deg: Yes working smoke detector in home: Yes fire extinguisher in home: Yes carbon monox detector in home: Yes firearms in home: No do you feel safe at home: Yes second hand exposure: No alcohol intake: former (very occasionally when not ) substance use type: does not use during the past year weight has: decreased > 10 lbs (lost ~15 lb w/ appendicitis, back to around baseline now) well-balanced diet: about half the time daily servings fruits/ve-4 caffeine: Yes (occasional dirty maria e (1 shot espresso in maria e latte)) Type(s) of exercise: walking frequency: daily Exam Vital Signs (past 8 hours): BPs 110-120s/70-80s P- 115-120s O2 sat- 99% Narrative Exam Narrative: general- AAO x3, NAD, resting comfortably cardio- tachycardic rate, normal rhythm, no murmurs lungs- CTAB fundus- soft, nontender LE- 2+ edema - cervix- 2/80/-3 in clinic Objective Labs 04/10/25 15:50 04/10/25 15:50 Labs: Laboratory Results - last 24 hr 04/10/25 04/10/25 15:30 15:50 WBC 10.9 RBC 3.79 L Hgb 11.6 L Hct 34.2 L MCV 90.3 MCH 30.7 MCHC 33.9 RDW 13.3 Plt Count 278 Neut % (Auto) 76.8 H Lymph % (Auto) 14.2 L Cross % (Auto) 7.7 Eos % (Auto) 0.6 L Baso % (Auto) 0.7 Neut # (Auto) 8400 H Lymph # (Auto) 1600 Cross # (Auto) 800 Eos # (Auto) 100 Baso # (Auto) 100 Sodium 135 L Potassium 4.1 Chloride 108 H Carbon Dioxide 19 L BUN 11 Creatinine 0.45 L Estimated GFR > 60 BUN/Creatinine Ratio 24.4 H Glucose 78 Uric Acid 3.1 Calcium 9.3 Total Bilirubin 0.3 AST 32 ALT 21 Alkaline Phosphatase 111 Total Protein 6.9 Albumin 3.5 Globulin 3.4 Albumin/Globulin Ratio 1.0 U Random Total Protein 18 H Urine Creatinine 52.44 Protein/Creatinin Ratio 0.34 Evaluation Evaluation Baseline heart rate: 145 Variability: Moderate (6-25) monitor accelerations: Present Monitor Decelerations: Absent Contraction Frequency (minutes): 3 Uterine Contraction Intensity: Mild Category of Tracing: Reactive Status: Category l station: -2 Diagnosis, Plan/Disposition Plan/Disposition Plan: Patient is a 25yo G1 @ 37wks with increasing edema and tachycardia 1. Maternal tachycardia/increasing edema - Pulse -115-120s O2 sat- 99% - cardiac exam- no murmurs, tachcardic rate, lungs clear - low concern for PE or cardiomyopathy based on overall stable O2 sats and generally comforatble appearing - BPs normotensive - p/c ratio- 0.3 (borderline elevated) but no elevated BPs -- currently only isolated proteinuria - labs wnl-- normal hgb, platelets, LFTs - assessment reassuring dispo- plan to discharge home as patient has no clear indication for delivery and overall is stable. I am concerned about possible impending PreE but may also be in early labor. Plan to return to L&D tomorrow for NST and BP monitoring/repeat labs reviewed strict reasons to return to L&D including headache,scotomas, RUQ pain, decreased FM, worsening contractions, shortness of breath/chest pain. patient's mother with her and can bring her to the hospital if needed, lives nearby. OB Disposition: home
== END 2025-04-10 17:32 | disposition home or self-care (01) ==
PROVIDERS: Admitting Provider Obstetrics & Gynecology; PCP Family Medicine; Referring Provider Obstetrics & Gynecology; Visit Provider Obstetrics & Gynecology
DX: O99.891 Other specified diseases and conditions complicating pregnancy (principal); R00.0 Tachycardia, unspecified; R31.9 Hematuria, unspecified; O12.03 Gestational edema, third trimester; O24.414 Gestational diabetes mellitus in pregnancy, insulin controlled; Z3A.37 37 weeks gestation of pregnancy
CPT/HCPCS: 36415; 59025; 59050; 80053; 84550; 85025; 87086; G0378; G0379

== ENCOUNTER 2025-04-11 08:58 | Outpatient (CLI) | payer OTHER, MEDICAID, SELFPAY ==
[2025-04-11 09:35] LABS: Add Manual Diff / Slide Review NO; Hematocrit 33.3 % (36-46); Hemoglobin 11.4 g/dL (12.0-16.0); Lymphocytes Absolute Auto 1700 /uL (1100-4500); Mean Corpuscular HGB Conc 34.4 % (30-36); Mean Corpuscular Hemoglobin 31.2 PG (26-34); Mean Corpuscular Volume 90.7 fL (80-100); Platelet Count 274 X10^3/uL (150-400)
[2025-04-11 09:47] LABS: Alanine Aminotransferase 22 IU/L (<35); Albumin 3.3 g/dL (3.5-5.0); Albumin Globulin Ratio 1.0 (1.0-2.8); Alkaline Phosphatase 112 U/L (38-126); Blood Urea Nitrogen 9 mg/dL (7-17); Calcium 8.6 mg/dL (8.4-10.2); Carbon Dioxide 18 mmol/L (22-32); Chloride 108 mmol/L (98-107); Estimated Glomerular Filt Rate > 60 mL/min (>60); Globulin 3.2 g/dL (1.7-4.1); Glucose 161 mg/dL (70-99); HEMOLYSIS < 15 (0-50); Potassium 3.6 mmol/L (3.4-5.1); Sodium 134 mmol/L (137-145); Total Protein 6.5 g/dL (6.3-8.2); Uric Acid 3.6 mg/dL (2.5-6.2)
[2025-04-11 09:59] LABS: Protein (Total) Urine Random 8 mg/dL (0-12); Protein Creatinine Ratio Urine 0.08 GRAM/24H
== END 2025-04-11 10:20 | disposition home or self-care (01) ==
LOC: LABOR 10:00 → OB 14:15
PROVIDERS: PCP Family Medicine; Referring Provider Obstetrics & Gynecology; Visit Provider Obstetrics & Gynecology
DX: O24.419 Gestational diabetes mellitus in pregnancy, unspecified control (principal); O99.113 Other diseases of the blood and blood-forming organs and certain disorders involving the immune mechanism complicating pregnancy, third trimester; D68.51 Activated protein C resistance; G90.A Postural orthostatic tachycardia syndrome [POTS]; O26.893 Other specified pregnancy related conditions, third trimester; Z3A.37 37 weeks gestation of pregnancy
CPT/HCPCS: 36415; 59025; 80053; 84550; 85025; G0378; G0379

== ENCOUNTER → 2025-04-11 10:20 | Outpatient (CLI) | payer OTHER, MEDICAID, SELFPAY ==
--- NOTE | 2025-04-11 10:37 | EKG_ITS ---
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
== END ==
PROVIDERS: PCP Family Medicine; Referring Provider Obstetrics & Gynecology; Visit Provider Obstetrics & Gynecology
DX: O26.899 Other specified pregnancy related conditions, unspecified trimester (principal); R00.0 Tachycardia, unspecified
CPT/HCPCS: 36415; 59025; 80053; 84550; 85025; 93005

== ENCOUNTER 2025-04-13 18:06 | Observation (INO) | payer OTHER, MEDICAID, SELFPAY ==
[2025-04-13] VITALS (11 sets, daily range): BP systolic 115–128; BP diastolic 72–82; PULSE 88–136; RESP 17–25; TEMP 37; O2SAT 95–99; BMI 29.2
--- NOTE | 2025-04-13 18:31 | EKG_ITS ---
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
--- NOTE | 2025-04-13 18:45 | ED.SOB ---
HPI - SOB/Dyspnea General Chief Complaint: Shortness of Breath/Dyspnea Stated Complaint: w Heavy Elephant feeling on chest + more. Time Seen by Provider: 04/13/25 18:37 Source: patient Mode of arrival: Ambulatory Limitations: no limitations History of Present Illness HPI Narrative: Patient is a 25-year-old currently 37 weeks has a history of factor 5 mutation, presenting today with chest heaviness and increasing shortness of breath and chest heaviness. She reports that she has also had increasing bilateral leg swelling. They have been watching her for preeclampsia. She is followed closely with OB and was seen there 3 days ago. She reports that he lost her mucus plug in his about 2 cm dilated. But really feels like every time she walks and moves she can not breathe. She has had some for respiratory like symptoms for the last couple of days but no fever or chills. She was having trouble breathing through her nose now she it settled into her chest and she can not take a deep breath Related Data Home Medications ?Medication ?Instructions ?Recorded ?Confirmed OOU51-SH 400 mcg-om3 35 mg-dha 25 tab PO 08/30/24 04/10/25 mg-epa 5 mg-fish oil chewable tablet quetiapine 25 mg tablet 25 mg PO BEDTIME 08/30/24 04/10/25 Previous Rx's ?Medication ?Instructions ?Recorded blood sugar diagnostic (Blood #120 ea 01/30/25 Glucose Test strips) blood-glucose meter (Blood Glucose #1 ea 01/30/25 Monitoring kit) lancets #120 ea 01/30/25 sertraline 50 mg tablet 50 mg PO DAILY 30 days #30 tabs 02/07/25 hydroxyzine HCl 25 mg tablet 25 mg PO BEDTIME PRN anxiety #30 02/21/25 tabs prochlorperazine maleate 5 mg 5 mg PO BID PRN nausea and 02/21/25 tablet (Compazine) vomiting #20 tabs insulin NPH isoph U-100 human 100 20 unit (0.2 mL) SUBCUT QAM #15 mL 03/30/25 unit/mL (3 mL) subcutaneous pen (Novolin N FlexPen) pen needle, diabetic 32 gauge x #100 ea 03/30/25/16 (Comfort EZ Pen Romeo) blood-glucose sensor (Dexcom G7 #8 ea 03/31/25 Sensor device) RSVPreF3 antigen-AS01E 0.5 ml IM ONCE mother #1 04/03/25 adjuvant(PF) 120 mcg/0.5 mL IM ea suspension, kit Allergies Allergy/AdvReac Type Severity Reaction Status Date / Time prazosin Allergy Severe Swelling Verified 04/13/25 18:24 of Lip/Tongue/Throat hydrocodone AdvReac Severe Vomiting Verified 04/13/25 18:24 oxycodone AdvReac Severe Vomiting Verified 04/13/25 18:24 citalopram AdvReac Mild Nightmare Verified 04/13/25 18:24 fig Allergy Intermediate Hives Uncoded 04/13/25 18:24 Patient History Medical History (Updated 04/14/25 @ 00:23 by Rachael Wilkins RN) Factor 5 Leiden mutation, heterozygous Ruptured appendix (~12/2023) Surgical History (Updated 08/30/24 @ 10:09 by Jacinta Chang RN) History of appendectomy Family History (Updated 08/30/24 @ 10:21 by Jacinta Chang RN) Mother Diabetes mellitus Ovarian cyst Gestational diabetes Grandmother Pacemaker Diabetes mellitus Family/Other Diabetes mellitus Father Diabetes mellitus Hypertension Aunt Ectopic Grandmother Factor V Leiden Social History marital status: number of children: 0 household members: spouse and friend(s) lives independently: Yes caregiver/support person: No housing: [facility] pets and animals: Yes (cats, dog) education level: high school 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) current occupational exposures/hazards: No special emili needs: No travel history: recent (domestic only) seatbelt use: always water heater temp set < 120 deg: Yes working smoke detector in home: Yes fire extinguisher in home: Yes carbon monox detector in home: Yes firearms in home: No do you feel safe at home: Yes Smoking Status: Never smoker second hand exposure: No alcohol intake: former (very occasionally when not ) substance use type: does not use during the past year weight has: decreased > 10 lbs (lost ~15 lb w/ appendicitis, back to around baseline now) well-balanced diet: about half the time daily servings fruits/ve-4 caffeine: Yes (occasional dirty maria e (1 shot espresso in maria e latte)) Type(s) of exercise: walking frequency: daily Smoking Status: Never smoker Exam Initial Vital Signs Initial Vital Signs: Vital Signs Temperature 98.6 F 04/13/25 18:20 Pulse Rate 127 H 04/13/25 18:20 Respiratory Rate 20 04/13/25 18:20 Blood Pressure 122/81 04/13/25 18:20 Pulse Oximetry 95 04/13/25 18:20 Oxygen Delivery Method Room Air 04/13/25 18:20 GENERAL: Alert pleasant well-appearing 25-year-old female and in [no acute] distress. HEENT: Head atraumatic,EOMI, pupils reactive, face symmetric, [moist] mucous membranes CARDIOVASCULAR: Tachycardic regular no murmurs RESPIRATORY: Breath sounds equal bilaterally, no wheezes rales or rhonchi. ABDOMEN: Soft, gravid nontender. Normoactive bowel sounds all 4 quadrants. No guarding or rebound. EXTREMITIES: Normal range of motion, no clubbing. +2 bilateral pitting edema Neurovascularly intact NEUROLOGICAL: Alert and oriented x4.Normal gait and speech. Cranial nerves II through XII grossly intact. SKIN: Warm, dry, no laceration, no petechiae, no rashes or lesions. Course Orders Ordered: ED Orders 04/13/25 18:27 EKG-12 Lead Stat 04/13/25 18:30 Urine Culture Stat Urine Microscopic Stat 04/13/25 18:38 Protein Creatinine Ratio Urine Stat 04/13/25 18:40 Complete Blood Count AUTO DIFF Stat Comprehensive Metabolic Panel Stat Lipase Stat Magnesium Stat NT-proBNP (BNP-Adult 18+) Stat PTT Partial Thromboplastin Cody Stat Prothrombin Time INR Stat Troponin & CK Cardiac Panel Stat 04/13/25 18:54 Urine Microscopic Stat 04/13/25 19:10 US periph venous low extrem bi Stat 04/13/25 20:52 CT angio chest PE protocol Stat 04/13/25 22:44 US OB biophysical profile Stat Discontinued Medications Albuterol (Albuterol 2.5 Mg/3 Ml Neb (Adult)) 2.5 mg INH NOW ONE Stop: 04/13/25 18:55 Last Admin: 04/13/25 20:37 Dose: 2.5 mg Documented By: Sodium Chloride (Normal Saline 0.9%) 500 mls @ 1,000 mls/hr IV BOLUS ONE Stop: 04/13/25 19:24 Last Infusion: 04/13/25 21:31 Dose: Infused Documented By: Admin: 04/13/25 19:59 Dose: 1,000 mls/hr Documented By: JEMAL Acetaminophen (Ofirmev) 1,000 mg in 100 mls @ 400 mls/hr IV NOW ONE Stop: 04/13/25 21:12 Last Infusion: 04/13/25 22:00 Dose: Infused Documented By: Admin: 04/13/25 21:04 Dose: 400 mls/hr Documented By: JEMAL Sodium Chloride (Normal Saline 0.9%) 1,000 mls @ 1,000 mls/hr IV BOLUS ONE Stop: 04/13/25 23:45 Last Admin: 04/13/25 23:10 Dose: 1,000 mls/hr Documented By: JEMAL Ondansetron HCl (Ondansetron 4 Mg/2 Ml Inj) 4 mg IV NOW ONE Stop: 04/13/25 20:59 Last Admin: 04/13/25 21:03 Dose: 4 mg Documented By: JEMAL Vital Signs Vital signs: Vital Signs - 8 hr 04/13/25 18:20 04/13/25 19:22 04/13/25 19:22 Temperature 98.6 F Pulse Rate 127 H 122 H Respiratory Rate 20 25 H Blood Pressure 122/81 122/79 Pulse Oximetry 95 97 Oxygen Delivery Method Room Air 04/13/25 19:30 04/13/25 19:30 04/13/25 20:30 Temperature Pulse Rate 119 H 128 H Respiratory Rate 23 18 Blood Pressure 128/77 Pulse Oximetry 97 98 Oxygen Delivery Method Room Air 04/13/25 20:32 04/13/25 20:32 04/13/25 20:45 Temperature Pulse Rate 127 H 88 Respiratory Rate 17 18 Blood Pressure 115/82 Pulse Oximetry 97 98 Oxygen Delivery Method 04/13/25 21:00 04/13/25 21:00 04/13/25 21:44 Temperature Pulse Rate 136 H 128 H Respiratory Rate 19 Blood Pressure 117/72 Pulse Oximetry 99 97 Oxygen Delivery Method 04/13/25 22:00 04/13/25 22:30 04/13/25 23:00 Temperature Pulse Rate 122 H 128 H 116 H Respiratory Rate 21 22 21 Blood Pressure Pulse Oximetry 97 98 97 Oxygen Delivery Method MDM - SOB/Dyspnea Lab Data 04/13/25 18:40 12/04/25 18:40 Labs: Lab Results 04/13/25 04/13/25 04/13/25 Range/Units 18:30 18:38 18:40 WBC 12.0 H (4.5-11.0) X10^3/uL RBC 3.66 L (4.0-5.2) X10^6/uL Hgb 11.3 L (12.0-16.0) g/dL Hct 33.1 L (36-46) % MCV 90.4 (80-100) fL MCH 30.8 (26-34) PG MCHC 34.1 (30-36) % RDW 13.5 (11.6-14.8) % Plt Count 297 (150-400) X10^3/uL Neut % (Auto) 82.6 H (50-75) % Lymph % (Auto) 9.3 L (25-40) % Parmer % (Auto) 7.3 (3-14) % Eos % (Auto) 0.5 L (2-4) % Baso % (Auto) 0.3 (0-2) % Neut # (Auto) 9900 H (3181-1043) /uL Lymph # (Auto) 1100 (3832-5567) /uL Parmer # (Auto) 900 (0-900) /uL Eos # (Auto) 100 (0-450) /uL Baso # (Auto) 0 (0-100) /uL PT 11.0 (9.4-12.5) SECONDS INR 1.0 (0.9-1.3) APTT 26 (25.1-36.5) SECONDS Sodium 136 L (137-145) mmol/L Potassium 3.7 (3.4-5.1) mmol/L Chloride 107 (98-107) mmol/L Carbon Dioxide 20 L (22-32) mmol/L BUN 9 (7-17) mg/dL Creatinine 0.47 L (0.52-1.04) mg/dL Estimated GFR > 60 (>60) mL/min BUN/Creatinine Ratio 19.1 (6-22) Glucose 133 H (70-99) mg/dL Calcium 9.1 (8.4-10.2) mg/dL Magnesium 1.7 (1.6-2.3) mg/dL Total Bilirubin 0.3 (0.2-1.3) mg/dL AST 25 (14-36) IU/L ALT 20 (<35) IU/L Alkaline Phosphatase 127 H (38-126) U/L Total Creatine Kinase 59 (30-135) U/L Troponin I < 0.012 (0.01-0.034) ng/mL NT-Pro-B Natriuret Pep 24 (<125) pg/mL Total Protein 6.9 (6.3-8.2) g/dL Albumin 3.7 (3.5-5.0) g/dL Globulin 3.2 (1.7-4.1) g/dL Albumin/Globulin Ratio 1.2 (1.0-2.8) Lipase 64 (23-300) U/L Urine RBC 1-5/hpf (0-5/HPF) Urine WBC 5-10/hpf H (0-5/HPF) Ur Squamous Epith Cells 1-5 /hpf (0-5/HPF) Urine Bacteria Moderate (10-30) H (None) Ur Culture Indicated? Specimen cultured Vol Urine Centrifuged 10ml (spun) U Random Total Protein 13 H (0-12) mg/dL Urine Creatinine 48.59 mg/dL Protein/Creatinin Ratio 0.26 GRAM/24H Urine Dip Bedside Urine Glucose Negative Bedside Urine Bilirubin - Negative Bedside Urine Ketone - Negative Urine Specific Humbird 1.015 Bedside Urine Occult Blood +/- Bedside Urine pH 6.5 Bedside Urine Protein - Negative Bedside Urine Urobilinogen - Negative Bedside Urine Nitrite - Negative Bedside Urine Leukocytes + [address] scan - chest: Radiologist's Impression: PROCEDURE: CT ANGIO CHEST PE PROTOCOL INDICATIONS: short of breath, factor 5 and TECHNIQUE: After the administration of intravenous contrast, 2 mm thick sections acquired from the pulmonary apices to the posterior costophrenic angles. 3-dimensional maximum intensity projection (MIP) coronal and sagittal reformats were then acquired through the thorax. For radiation dose reduction, the following was used: automated exposure control, adjustment of mA and/or kV according to patient size. COMPARISON: None. FINDINGS: Image quality: There is suboptimal timing of contrast bolus limiting evaluation of the pulmonary arteries. The pulmonary arteries were adequately visualized to level of the proximal segmental pulmonary arteries.. Pulmonary arteries: Pulmonary arteries are normal in size, and demonstrate no intraluminal filling defects to suggest central pulmonary embolism. Lower Neck: No enlarged lymph nodes. Thyroid: No thyroid nodules which require sonographic follow up, per consensus guidelines. Axillae: No enlarged lymph nodes. Chest Wall: Unremarkable. Bones: Visualized osseous structures appear intact without acute fracture or focal destructive lesion. No acute compression fractures of the imaged spine. Lungs and Pleura: No pneumothorax or pleural effusions. Moderate bibasilar atelectasis. Visualized airways appear patent. No septal thickening or nodularity. No suspicious pulmonary nodules. Heart: Heart size is normal. No pericardial effusion. Thoracic Vessels: No aortic aneurysm. Mediastinum and Elba: No enlarged lymph nodes. Esophagus: No wall thickening. Small hiatal hernia. Upper Abdomen: Visualized upper abdomen solid organs and bowel loops appear normal. IMPRESSION: No evidence for acute pulmonary emboli. Moderate bibasilar atelectasis. No acute cardiopulmonary abnormalities noted. Hiatal hernia. Dictated by: Crescencio Joe M.D. on 04/13/2025 at 22:26 ECG Data Attestation: I personally reviewed and interpreted this ECG as follows: Interpretation: Sinus tachycardia rate 124 QRS [address] changes or T-wave inversion MDM Narrative Medical decision making narrative: MDM CC: Shortness of breath Complicating co-morbidities: 3rd term , factor 5 mutation Data collected from: Patient mother Medical records reviewed: Records reviewed Differential considered: Pneumonia her laboratory in the, pulmonary embolism just depart failure Exam documented above, pertinent findings include: Decreased breath sounds, tachycardic, bilateral lower extremity he had female Lab Test results independently reviewed as above. Pertinent findings: CBC shows mild leukocytosis of 12 which can be normal in no significant anemia CMP bicarb 20 no significant electrolyte abnormality glucose is 133 Magnesium 1.7 Bilirubin liver enzymes within normal limits lipase within normal limits Troponin negative Urinalysis does have positive leuks Independently reviewed EKG as above sinus tachycardia no ischemia Imaging studies independently reviewed: CT angio no pulmonary embolism Bilateral lower extremity Dopplers no DVT Consultations: 2052 DR. Liliana moran with pe rule out and NST Reconsulted patient remains tachycardic agrees to observation Treatments: IV fluids Tylenol Zofran albuterol Re-evaluations: Had some improvement with albuterol no significant wheezing continues to be tachycardic short of breath. Head NST by L&D nursing staff, results show category 1 accels present no DE cells moderate variability Discussion: Patient 25-year-old female presenting today with shortness of breath. Lots of discussion with her and mother shared decision making. Concern with factor 5 Leiden ongoing tachycardia and shortness of breath need to rule out pulmonary embolism. Discussed risks and benefits with her. Ob also agrees. She agrees to a CT angio which did luckily rule out pulmonary embolism and pneumonia. Blood work is overall reassuring mild leukocytosis no other significant abnormalities. No evidence of preeclampsia blood pressure is within normal limits. Continues to be tachycardic despite IV fluids and Tylenol. She is complaining of some upper abdominal pain. Ultrasound ordered Ob is called and accepted over at L&D Discharge Plan Departure Patient Disposition: Admitted as Observation Clinical Impression: Supervision of other high risk pregnancies, third trimester Admit Date/Time: 04/13/25 23:28 Admit Provider: Georgiana Gorman
[2025-04-13 18:49] LABS: Add Manual Diff / Slide Review NO; Hematocrit 33.1 % (36-46); Hemoglobin 11.3 g/dL (12.0-16.0); Lymphocytes Absolute Auto 1100 /uL (1100-4500); Mean Corpuscular HGB Conc 34.1 % (30-36); Mean Corpuscular Hemoglobin 30.8 PG (26-34); Mean Corpuscular Volume 90.4 fL (80-100); Platelet Count 297 X10^3/uL (150-400)
[2025-04-13 19:01] LABS: INR 1.0 (0.9-1.3); Prothrombin Time 11.0 SECONDS (9.4-12.5)
[2025-04-13 19:04] LABS: PTT Partial Thromboplastin Tim 26 SECONDS (25.1-36.5)
[2025-04-13 19:06] LABS: Culture Indicated Urine Specimen Cultured
[2025-04-13 19:10] LABS: Alanine Aminotransferase 20 IU/L (<35); Albumin 3.7 g/dL (3.5-5.0); Albumin Globulin Ratio 1.2 (1.0-2.8); Alkaline Phosphatase 127 U/L (38-126); Blood Urea Nitrogen 9 mg/dL (7-17); Calcium 9.1 mg/dL (8.4-10.2); Carbon Dioxide 20 mmol/L (22-32); Chloride 107 mmol/L (98-107); Creatine Kinase 59 U/L (30-135); Estimated Glomerular Filt Rate > 60 mL/min (>60); Globulin 3.2 g/dL (1.7-4.1); Glucose 133 mg/dL (70-99); HEMOLYSIS < 15 (0-50); Lipase 64 U/L (23-300); Magnesium 1.7 mg/dL (1.6-2.3); Potassium 3.7 mmol/L (3.4-5.1); Sodium 136 mmol/L (137-145); Total Protein 6.9 g/dL (6.3-8.2)
--- NOTE | 2025-04-13 19:10 | DI.US.S_ITS ---
PROCEDURE: US PERIPH VENOUS LOW EXTREM BI INDICATIONS: swelling factor 5 TECHNIQUE: Real-time imaging, as well as color and pulse Doppler interrogation, were performed of the deep veins of both legs from the inguinal ligament to the popliteal fossa, with documentation of the visualized calf veins. COMPARISON: None. FINDINGS: Right: The common femoral, femoral, popliteal, and the visualized calf veins are normally compressible, and free of intraluminal thrombus. Color and pulse Doppler demonstrate normal phasic intravascular flow. There is normal augmentation response to distal compression maneuver. Left: The common femoral, femoral, popliteal, and the visualized calf veins are normally compressible, and free of intraluminal thrombus. Color and pulse Doppler demonstrate normal phasic intravascular flow. There is normal augmentation response to distal compression maneuver. IMPRESSION: No findings of deep venous thrombosis in either lower extremity. Dictated by: Crescencio Joe M.D. on 04/13/2025 at 20:23 Approved by: Crescencio Joe M.D. on 04/13/2025 at 20:23
[2025-04-13 19:23] LABS: NT-proBNP (BNP-Adult 18+) 24 pg/mL (<125); Troponin I < 0.012 ng/mL (0.01-0.034)
[2025-04-13 19:31] LABS: Protein (Total) Urine Random 13 mg/dL (0-12); Protein Creatinine Ratio Urine 0.26 GRAM/24H
[2025-04-13] MEDS: SODIUM CHLORIDE 0.9% 500 ML 1000 ML IV (19:59)
[2025-04-13] MEDS: ALBUTEROL 2.5 MG/3 ML NEB (ADULT) INH (20:37)
--- NOTE | 2025-04-13 20:52 | DI.CT.S_ITS ---
PROCEDURE: CT ANGIO CHEST PE PROTOCOL INDICATIONS: short of breath, factor 5 and TECHNIQUE: After the administration of intravenous contrast, 2 mm thick sections acquired from the pulmonary apices to the posterior costophrenic angles. 3-dimensional maximum intensity projection (MIP) coronal and sagittal reformats were then acquired through the thorax. For radiation dose reduction, the following was used: automated exposure control, adjustment of mA and/or kV according to patient size. COMPARISON: None. FINDINGS: Image quality: There is suboptimal timing of contrast bolus limiting evaluation of the pulmonary arteries. The pulmonary arteries were adequately visualized to level of the proximal segmental pulmonary arteries.. Pulmonary arteries: Pulmonary arteries are normal in size, and demonstrate no intraluminal filling defects to suggest central pulmonary embolism. Lower Neck: No enlarged lymph nodes. Thyroid: No thyroid nodules which require sonographic follow up, per consensus guidelines. Axillae: No enlarged lymph nodes. Chest Wall: Unremarkable. Bones: Visualized osseous structures appear intact without acute fracture or focal destructive lesion. No acute compression fractures of the imaged spine. Lungs and Pleura: No pneumothorax or pleural effusions. Moderate bibasilar atelectasis. Visualized airways appear patent. No septal thickening or nodularity. No suspicious pulmonary nodules. Heart: Heart size is normal. No pericardial effusion. Thoracic Vessels: No aortic aneurysm. Mediastinum and Elba: No enlarged lymph nodes. Esophagus: No wall thickening. Small hiatal hernia. Upper Abdomen: Visualized upper abdomen solid organs and bowel loops appear normal. IMPRESSION: No evidence for acute pulmonary emboli. Moderate bibasilar atelectasis. No acute cardiopulmonary abnormalities noted. Hiatal hernia. Dictated by: Crescencio Joe M.D. on 04/13/2025 at 22:26 Approved by: Crescencio Joe M.D. on 04/13/2025 at 22:31
[2025-04-13] MEDS: ONDANSETRON 4 MG/2 ML INJ IV (21:03)
[2025-04-13] MEDS: ACETAMINOPHEN IV 1,000 MG/100 ML VIAL 400 MG IV (21:04)
--- NOTE | 2025-04-13 21:19 | PC.NURSE ---
2141 reactive NST obtained by this RN. Category 1 EFM tracings. Accels presents, no Decels noted. Moderate Variability.
--- NOTE | 2025-04-13 22:44 | DI.US.S_ITS ---
PROCEDURE: US OB BIOPHYSICAL PROFILE INDICATIONS: pain 37 weeks OUTSIDE/PRIOR DATING DATA: Last menstrual period (LMP): 07/25/2024. LMP-based estimated date of delivery (JUDITH): 05/01/2025. TECHNIQUE: Real-time scanning was performed of the fetus for biophysical profile, with image documentation. Color and pulse Doppler interrogation was also performed of the umbilical artery near its insertion into the placenta. Endovaginal scanning: Not performed COMPARISON: [facility], US, OB BIOPHYSICAL PROFILE, 03/24/2025, 13:18. FINDINGS: General: A single living intrauterine gestation is present. Presentation: Vertex Placenta: Placental position is fundal/posterior left, without previa. Amniotic fluid index: 15.4 cm, normal range is 5-24 cm. Single deepest vertical pocket is 5.8 cm. heart rate: 145 beats per minute. Maternal cervical canal: 3.1 cm long. Normal lower limit is 2.5 cm. Clinically estimated gestational age: 37 weeks 3 days Biophysical profile: Tone: 0 points. Movement: 2 points. Respiration: 2 points. Largest pocket of fluid: 2 points. IMPRESSION: Single live intrauterine gestation as above. Biophysical profile score 6/8 as above. We strive to produce accurate, complete, and clear reports of imaging services. To assist us in improving patient care, this report was composed using standard report templates and voice recognition software. Therefore, it may contain abnormal punctuation, insertions and/or omissions. Occasional wrong-word or sound-alike substitutions may occur. Though we review the report and make efforts to correct it, we do recommend that the report be read carefully in proper context to recognize any text inaccuracies. Dictated by: Clark Duncan M.D. on 04/14/2025 at 1:35 Approved by: Clark Duncan M.D. on 04/14/2025 at 1:38
[2025-04-13] MEDS: SODIUM CHLORIDE 0.9% 1,000 ML 1000 ML IV (23:10)
[2025-04-14] VITALS: PULSE 120; O2SAT 99
[2025-04-14 00:01] VITALS: BP 122/72; PULSE 117; RESP 24; O2SAT 96
[2025-04-14] MEDS: diphenhydrAMINE 25 MG TABLET PO (02:12)
[2025-04-14] MEDS: ZOLPIDEM 5 MG TABLET PO (03:44)
[2025-04-14 05:03] LABS: Strep Grp A by PCR Rapid Negative (Negative)
[2025-04-14 05:38] LABS: Coronavirus NL 63 Not Detected (Not Detect); SARS- CoV-2 Not Detected (Not Detecte)
[2025-04-14] MEDS: ONDANSETRON 4 MG/2 ML INJ IV (05:55)
[2025-04-14] MEDS: ACETAMINOPHEN 325 MG TABLET 650 MG PO (05:55)
--- NOTE | 2025-04-14 07:45 | P.HPOB_ITS ---
OB HPI Date/Time Date of admission: 04/13/25 Date Patient Seen: 04/14/25 History of Present Condition Chief complaint: w Heavy Elephant feeling on chest + more. JUDITH Calculator 2 Estimated Delivery Date Method Current WG Current Estimate 05/01/25 LMP (Certain) 37w 4d Other Estimates 05/01/25 Ultrasound #1 37w 4d Estimated Gestational Age (weeks): 37w4d Narrative: 25-year-old G1 at 37 weeks 4 days who presented to the emergency department with chest pain. Pulmonary embolism workup was performed due to tachycardia on arrival. CTA negative. Labs overall reassuring. Troponin negative. Urine protein creatinine ratio normal. EKG showing sinus tachycardia with no ST changes or T-wave inversions. NST is reactive and reassuring throughout.Due to concern for symptomatic chest discomfort ER called for admission for monitoring. ultrasound with BPP 6/8 off for tone but NST reactive and reassuring throughout complicated by Factor V Leiden + Seroquel use for insomnia + GDM A1 on insulin 20 units NPH care: good care Dating criteria OB: LMP confirmed by 1st trimester US Ultrasounds: normal 1st trimester US Obstetrical complications: gestational diabetes Medical complications OB: other Preadmission Labs Last OB Lab Results: 2 Blood Type A Positive 02/15/25, 20:50 Antibody Screen Negative 02/15/25, 20:50 Hct, (36-46) 33.1 % L 04/13/25, 18:40 Hgb, (12.0-16.0) 11.3 g/dL L 04/13/25, 18:40 Hep Bs Antigen, (NEGATIVE) Negative s/c 10/17/24, 11: 00 Hepatitis C Antibody, (NEGATIVE) Negative s/c 5, 11:00 Rubella Antibody, (>15) 37.2 IU/mL 10/17/24, 11:00 VZV IgG Antibody, (Non Reactive) Reactive 5, 11:00 Glucose 1 Hr 50 gm, (76-139) 156 mg/dL H 01/10/25, 1 0:38 Group B Strep (PCR) Neg for grp b strep 04/04/25, 12:00 Evaluation Evaluation Baseline heart rate: 120 Variability: Moderate (6-25) monitor accelerations: Present Monitor Decelerations: Absent Contraction Frequency (minutes): 0 Category of Tracing: Reactive Status: Category l PFS Medical History (Updated 04/14/25 @ 00:23 by Rachael Wilkins RN) Factor 5 Leiden mutation, heterozygous Ruptured appendix (~12/2023) Surgical History (Updated 08/30/24 @ 10:09 by Jacinta Chang, SUSU) History of appendectomy Family History (Updated 08/30/24 @ 10:21 by Jacinta Chang RN) Mother Diabetes mellitus Ovarian cyst Gestational diabetes Grandmother Pacemaker Diabetes mellitus Family/Other Diabetes mellitus Father Diabetes mellitus Hypertension Aunt Ectopic Grandmother Factor V Leiden Social History marital status: number of children: 0 household members: spouse and friend(s) lives independently: Yes caregiver/support person: No housing: [facility] ([facility]) pets and animals: Yes (cats, dog) education level: high school 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[employer]) current occupational exposures/hazards: No special emili needs: No travel history: recent (domestic only) seatbelt use: always water heater temp set < 120 deg: Yes working smoke detector in home: Yes fire extinguisher in home: Yes carbon monox detector in home: Yes firearms in home: No do you feel safe at home: Yes Smoking Status: Never smoker second hand exposure: No alcohol intake: former (very occasionally when not ) substance use type: does not use during the past year weight has: decreased > 10 lbs (lost ~15 lb w/ appendicitis, back to around baseline now) well-balanced diet: about half the time daily servings fruits/ve-4 caffeine: Yes (occasional dirty maria e (1 shot espresso in maria e latte)) Type(s) of exercise: walking frequency: daily Meds Home Medications and Allergies Home Medications ?Medication ?Instructions ?Recorded ?Confirmed ?Type [id number] 400 mcg-om3 35 mg-dha 25 tab PO 08/30/2406/04 History mg-epa 5 mg-fish oil chewable tablet quetiapine 25 mg tablet 25 mg PO BEDTIME 08/30/24 History blood sugar diagnostic (Blood #120 ea 01/30/25 5 Rx Glucose Test strips) blood-glucose meter (Blood Glucose #1 ea 01/30/2506/04 Rx Monitoring kit) lancets #120 ea 01/30/25 04/10/25 Rx sertraline 50 mg tablet 50 mg PO DAILY 30 days #30 t abs 02/07/25 04/10/25 Rx hydroxyzine HCl 25 mg tablet 25 mg PO BEDTIME PRN anxi ety #30 02/21/25 04/10/25 Rx tabs prochlorperazine maleate 5 mg 5 mg PO BID PRN nausea a nd 02/21/25 04/10/25 Rx tablet (Compazine) vomiting #20 tabs insulin NPH isoph U-100 human 100 20 unit (0.2 mL) SUB CUT QAM #15 mL 03/30/25 04/10/25 Rx unit/mL (3 mL) subcutaneous pen (Novolin N FlexPen) pen needle, diabetic 32 gauge x #100 ea 03/30/2504/10 Rx 3/16 (Comfort EZ Pen [place]) blood-glucose sensor (Dexcom G7 #8 ea 03/31/25 5 Rx Sensor device) RSVPreF3 antigen-AS01E 0.5 ml IM ONCE moth er #1 04/03/25 04/10/25 Rx adjuvant(PF) 120 mcg/0.5 mL IM ea suspension, kit Allergies Allergy/AdvReac Type Severity Reaction Status Date / Time prazosin Allergy Severe Swelling Verified 04/13/25 18:24 of Lip/Tongue/Throat hydrocodone AdvReac Severe Vomiting Verified 04/13/25 18:24 oxycodone AdvReac Severe Vomiting Verified 04/13/25 18:24 citalopram AdvReac Mild Nightmare Verified 04/13/25 18:24 fig Allergy Intermediate Hives Uncoded 04/13/25 18:24 Review of Systems Review of Systems Narrative: + cough + congestion + sore throat + chest discomfort - SOB OB Exam Narrative Exam Narrative: GEN: Non-toxic, well-developed, NAD. voice hoarse, coughin gintermittently PSYCH: Good Judgment. AOx3. Normal memory, mood, and affect HEENT: -Head: NC/AT -Eyes: No discharge or redness CV: warm and well perfused, Tachycardic but regular rhythm LUNGS: breathing comfortably on RA, CTAB SKIN: Warm, well perfused. No skin rashes or abnormal lesions MSK: No deformities NEURO: No focal deficits Objective Labs 04/13/25 18:40 04/13/25 18:40 Labs: Laboratory Results - last 24 hr 04/13/25 04/13/25 04/13/25 18:30 18:38 18:40 WBC 12.0 H RBC 3.66 L Hgb 11.3 L Hct 33.1 L MCV 90.4 MCH 30.8 MCHC 34.1 RDW 13.5 Plt Count 297 Neut % (Auto) 82.6 H Lymph % (Auto) 9.3 L [place] % (Auto) 7.3 Eos % (Auto) 0.5 L Baso % (Auto) 0.3 Neut # (Auto) 9900 H Lymph # (Auto) 1100 [place] # (Auto) 900 Eos # (Auto) 100 Baso # (Auto) 0 PT 11.0 INR 1.0 APTT 26 Sodium 136 L Potassium 3.7 Chloride 107 Carbon Dioxide 20 L BUN 9 Creatinine 0.47 L Estimated GFR > 60 BUN/Creatinine Ratio 19.1 Glucose 133 H Calcium 9.1 Magnesium 1.7 Total Bilirubin 0.3 AST 25 ALT 20 Alkaline Phosphatase 127 H Total Creatine Kinase 59 Troponin I < 0.012 NT-Pro-B Natriuret Pep 24 Total Protein 6.9 Albumin 3.7 Globulin 3.2 Albumin/Globulin Ratio 1.2 Lipase 64 Urine RBC 1-5/hpf Urine WBC 5-10/hpf H Ur Squamous Epith Cells 1-5 /hpf Urine Bacteria Moderate (10-30) H Ur Culture Indicated? Specimen cultured Vol Urine Centrifuged 10ml (spun) U Random Total Protein 13 H Urine Creatinine 48.59 Protein/Creatinin Ratio 0.26 Chlamy pneumoniae PCR Adenovirus (PCR) B. pertussis DNA (PCR) B.parapertussis DNA PCR Coronavirus OC43 (PCR) Coronavirus HKU1 (PCR) Coronavirus 229E (PCR) SARS-CoV-2 (PCR) Coronavirus NL63 (PCR) Human Metapneumovir PCR Influenza Type A (PCR) Influenza Type B (PCR) M. pneumoniae (PCR) Parainfluenza 1 (PCR) Parainfluenza 2 (PCR) Parainfluenza 3 (PCR) Parainfluenza 4 (PCR) RSV (PCR) Entero/Rhino (PCR) Group A Strep (PCR) 04/14/25 04:28 WBC RBC Hgb Hct MCV MCH MCHC RDW Plt Count Neut % (Auto) Lymph % (Auto) [place] % (Auto) Eos % (Auto) Baso % (Auto) Neut # (Auto) Lymph # (Auto) [place] # (Auto) Eos # (Auto) Baso # (Auto) PT INR APTT Sodium Potassium Chloride Carbon Dioxide BUN Creatinine Estimated GFR BUN/Creatinine Ratio Glucose Calcium Magnesium Total Bilirubin AST ALT Alkaline Phosphatase Total Creatine Kinase Troponin I NT-Pro-B Natriuret Pep Total Protein Albumin Globulin Albumin/Globulin Ratio Lipase Urine RBC Urine WBC Ur Squamous Epith Cells Urine Bacteria Ur Culture Indicated? Vol Urine Centrifuged U Random Total Protein Urine Creatinine Protein/Creatinin Ratio Chlamy pneumoniae PCR Not detected Adenovirus (PCR) Not detected B. pertussis DNA (PCR) Not detected B.parapertussis DNA PCR Not detected Coronavirus OC43 (PCR) Not detected Coronavirus HKU1 (PCR) Not detected Coronavirus 229E (PCR) Not detected SARS-CoV-2 (PCR) Not detected Coronavirus NL63 (PCR) Not detected Human Metapneumovir PCR Not detected Influenza Type A (PCR) Not detected Influenza Type B (PCR) Not detected M. pneumoniae (PCR) Not detected Parainfluenza 1 (PCR) Not detected Parainfluenza 2 (PCR) Not detected Parainfluenza 3 (PCR) Not detected Parainfluenza 4 (PCR) Not detected RSV (PCR) Not detected Entero/Rhino (PCR) Not detected Group A Strep (PCR) Negative Assessment and Plan Assessment and Plan Assessment and Plan narrative: 25-year-old G1 at 37 weeks 4 days who presented to the emergency department with chest pain. Pulmonary embolism workup was performed due to tachycardia on arrival. CTA negative. Labs overall reassuring. Troponin negative. Urine protein creatinine ratio normal. EKG showing sinus tachycardia with no ST changes or T-wave inversions. NST is reactive and reassuring throughout.Due to concern for symptomatic chest discomfort ER called for admission for monitoring. - Admit to obs for overnight monitoring due to BPP 6/8 - Continuous monitoring - On arrival to L and D, patient noting sore throat, congestion, so higher concern for viral URI - Respiratory viral pathogen panel ordered - Tea and honey for symptomatic management of sore throat - Cough drops available at request - spray ordered but not available in hospital - Recommend Flonase available in hospital - Continue Tylenol as needed for pain Time-Based Coding :: [TOTAL MINUTES] spent with patient and on the chart (including review of chart, obtaining history, exam, reviewing outside data, placing orders, documenting exam and treatment plan, and counseling patient) on [DATE].
--- NOTE | 2025-04-14 07:58 | P.DS_ITS ---
Discharge Providers Provider Date of admission: 04/13/25 23:28 Discharge Date: 04/14/25 Primary care physician: Georgiana Gorman MD Discharge provider: Georgiana Gorman MD Summary Hospital Course Hospital Course: 25-year-old G1 at 37 weeks 4 days who presented to the emergency department with chest pain. Pulmonary embolism workup was performed due to tachycardia on arrival. CTA negative. Labs overall reassuring. Troponin negative. Urine protein creatinine ratio normal. EKG showing sinus tachycardia with no ST changes or T-wave inversions. NST is reactive and reassuring throughout.Due to concern for symptomatic chest discomfort ER called for admission for monitoring. ultrasound with BPP 6/8 off for tone but NST reactive and reassuring throughout Overnight, monitoring was reassuring with category 1 tracing throughout. Patient was noted to be tachycardic but this has been a difficulty with her at baseline. She also has baseline history of POTS and is often tachycardic. Shew as treated symptomatically for cough, congestion and sore throat. Viral pathogen panel negative. She was discharged home after 12 hours of reassuring/reactive NST wt plans to f/up wtih her primary OB today for further eval. She noted that she was also out of her home seroquel so this was refilled. Zofran also refilled. symptomatic management of viral URI was reviewed. REturn precautions discussed. She was tolerating PO fluids at time of discharge. complicated by Factor V Leiden + Seroquel use for insomnia + GDM A1 on insulin 20 units NPH Time Spent with Patient Time attestation: Total time spent providing and/or coordinating discharge services: Objective Labs 04/13/25 18:40 04/13/25 18:40 Labs: Laboratory Results - last 24 hr 04/13/25 04/13/25 04/13/25 18:30 18:38 18:40 WBC 12.0 H RBC 3.66 L Hgb 11.3 L Hct 33.1 L MCV 90.4 MCH 30.8 MCHC 34.1 RDW 13.5 Plt Count 297 Neut % (Auto) 82.6 H Lymph % (Auto) 9.3 L [place] % (Auto) 7.3 Eos % (Auto) 0.5 L Baso % (Auto) 0.3 Neut # (Auto) 9900 H Lymph # (Auto) 1100 [place] # (Auto) 900 Eos # (Auto) 100 Baso # (Auto) 0 PT 11.0 INR 1.0 APTT 26 Sodium 136 L Potassium 3.7 Chloride 107 Carbon Dioxide 20 L BUN 9 Creatinine 0.47 L Estimated GFR > 60 BUN/Creatinine Ratio 19.1 Glucose 133 H Calcium 9.1 Magnesium 1.7 Total Bilirubin 0.3 AST 25 ALT 20 Alkaline Phosphatase 127 H Total Creatine Kinase 59 Troponin I < 0.012 NT-Pro-B Natriuret Pep 24 Total Protein 6.9 Albumin 3.7 Globulin 3.2 Albumin/Globulin Ratio 1.2 Lipase 64 Urine RBC 1-5/hpf Urine WBC 5-10/hpf H Ur Squamous Epith Cells 1-5 /hpf Urine Bacteria Moderate (10-30) H Ur Culture Indicated? Specimen cultured Vol Urine Centrifuged 10ml (spun) U Random Total Protein 13 H Urine Creatinine 48.59 Protein/Creatinin Ratio 0.26 Chlamy pneumoniae PCR Adenovirus (PCR) B. pertussis DNA (PCR) B.parapertussis DNA PCR Coronavirus OC43 (PCR) Coronavirus HKU1 (PCR) Coronavirus 229E (PCR) SARS-CoV-2 (PCR) Coronavirus NL63 (PCR) Human Metapneumovir PCR Influenza Type A (PCR) Influenza Type B (PCR) M. pneumoniae (PCR) Parainfluenza 1 (PCR) Parainfluenza 2 (PCR) Parainfluenza 3 (PCR) Parainfluenza 4 (PCR) RSV (PCR) Entero/Rhino (PCR) Group A Strep (PCR) 04/14/25 04:28 WBC RBC Hgb Hct MCV MCH MCHC RDW Plt Count Neut % (Auto) Lymph % (Auto) [place] % (Auto) Eos % (Auto) Baso % (Auto) Neut # (Auto) Lymph # (Auto) [place] # (Auto) Eos # (Auto) Baso # (Auto) PT INR APTT Sodium Potassium Chloride Carbon Dioxide BUN Creatinine Estimated GFR BUN/Creatinine Ratio Glucose Calcium Magnesium Total Bilirubin AST ALT Alkaline Phosphatase Total Creatine Kinase Troponin I NT-Pro-B Natriuret Pep Total Protein Albumin Globulin Albumin/Globulin Ratio Lipase Urine RBC Urine WBC Ur Squamous Epith Cells Urine Bacteria Ur Culture Indicated? Vol Urine Centrifuged U Random Total Protein Urine Creatinine Protein/Creatinin Ratio Chlamy pneumoniae PCR Not detected Adenovirus (PCR) Not detected B. pertussis DNA (PCR) Not detected B.parapertussis DNA PCR Not detected Coronavirus OC43 (PCR) Not detected Coronavirus HKU1 (PCR) Not detected Coronavirus 229E (PCR) Not detected SARS-CoV-2 (PCR) Not detected Coronavirus NL63 (PCR) Not detected Human Metapneumovir PCR Not detected Influenza Type A (PCR) Not detected Influenza Type B (PCR) Not detected M. pneumoniae (PCR) Not detected Parainfluenza 1 (PCR) Not detected Parainfluenza 2 (PCR) Not detected Parainfluenza 3 (PCR) Not detected Parainfluenza 4 (PCR) Not detected RSV (PCR) Not detected Entero/Rhino (PCR) Not detected Group A Strep (PCR) Negative Exam Vital Signs (past 8 hours): - 04/14/25 00:00 04/14/25 00:01 04/14/25 00:01 Pulse Rate 120 H 117 H Respiratory Rate 24 Blood Pressure 122/72 Pulse Oximetry 99 96 Oxygen Delivery Method Room Air 04/14/25 00:22 Pulse Rate Respiratory Rate Blood Pressure Pulse Oximetry Oxygen Delivery Method Room Air Oxygen Delivery Method Room Air Narrative Exam Narrative: general- AAO x3, NAD, resting comfortably cardio- tachycardic rate, normal rhythm, no murmurs lungs- CTAB, no wheezing or crackles. no sign of respiratory distress. coughing intermittently fundus- soft, nontender Voice hoarse, coughing intermittently Discharge Plan Discharge Plan Patient Disposition: Home Discharge orders & Medications Prescriptions: New acetaminophen 325 mg Tablet 975 mg PO Q8HR PRN (Reason: fever, pain) Qty: 60 0RF Chloraseptic Throat Beaver 1.4 % Aerosol,Beaver 2 spray mucous membrane Q4HR PRN (Reason: Sore Throat) Qty: 20 0RF ondansetron 4 mg tablet,disintegrating 4 mg PO Q8H PRN (Reason: nausea and vomiting) Qty: 60 0RF prochlorperazine maleate [Compazine] 5 mg tablet 5 mg PO BID PRN (Reason: nausea and vomiting) Qty: 30 0RF quetiapine [Seroquel] 25 mg tablet 25 mg PO BEDTIME Qty: 30 0RF Continued (DME) Blood Glucose Test Strip See Rx Instructions .ROUTE .MEDSUPPLY Qty: 120 3RF Rx Instructions: Testing blood sugar 4x daily fasting and 2 hours after each meal (DME) lancets Misc See Rx Instructions .ROUTE .MEDSUPPLY Qty: 120 3RF Rx Instructions: Testing blood sugar 4x daily Fasting and 2 hours after each meal (DME) blood-glucose meter [Blood Glucose Monitoring] Kit See Rx Instructions .ROUTE .MEDSUPPLY Qty: 1 0RF Rx Instructions: Testing blood surgar 4x daily Fasting and 2 hours after each meal Novolin N FlexPen 100 unit/mL (3 mL) insulin pen 20 unit SUBCUT QAM Qty: 15 2RF (DME) pen needle, diabetic [Comfort EZ Pen [place]] 32 gauge x 3/16 needle See Rx Instructions .Route Qty: 100 0RF Rx Instructions: for use with insulin pen (DME) Dexcom G7 Sensor Device See Rx Instructions .ROUTE .MEDSUPPLY Qty: 8 4RF Rx Instructions: use to check blood sugars and change out every 10 days RSVPreF3 antigen-AS01E (PF) 120 mcg/0.5 mL suspension for reconstitution 0.5 ml IM ONCE Qty: 1 0RF hydroxyzine HCl 25 mg tablet 25 mg PO BEDTIME PRN (Reason: anxiety) Qty: 30 2RF [id number] oil 400 mcg-35 mg -25 mg-5 mg tablet,chewable PO sertraline 50 mg tablet 50 mg PO DAILY 30 Days Qty: 30 4RF quetiapine 25 mg tablet 25 mg PO BEDTIME 60 Days Qty: 60 0RF prochlorperazine maleate [Compazine] 5 mg tablet 5 mg PO BID PRN (Reason: nausea and vomiting) 30 Days Qty: 30 0RF Follow up/Referrals: Katie Mcwilliams DO [Physician, Gynecology] - 04/17/25 7:00 am Referral Note: Please follow up for your Induction scheduled for Thursday April 17, 2025 arrival time @ 7:00am! :) Georgiana Gorman MD [Primary Care Provider, Family Practice] Referral Note: Visit Report/Discharge Packet Instructions: Is It Really Labor?, What to Expect During Labor, Yoga in May Improve Labor Discomfort, DI for False Labor Stand Alone Forms: Patient Portal/API, Stroke Signs & Symptoms Discharge Data Primary Care Provider: Georgiana Gorman Attending Provider: Georgiana Gorman Admit Date/Time: 04/13/25 23:28 Discharges patient from system. Discharge Date/Time: 04/14/25 13:34
[2025-04-14] MEDS: PROCHLORPERAZINE 10 MG/2 ML VIAL IV (08:28)
[2025-04-14] MEDS: LACTATED RINGERS 1,000 ML 125 ML IV (08:28)
== END 2025-04-14 13:34 | disposition home or self-care (01) ==
LOC: ED 18:37 → AC 04-14 00:23 → LABOR 04-14 01:43
PROVIDERS: Admitting Provider Family Medicine; Emergency Provider Emergency Medicine; PCP Family Medicine; Referring Provider Emergency Medicine; Visit Provider Family Medicine
DX: O26.893 Other specified pregnancy related conditions, third trimester (principal); R07.9 Chest pain, unspecified; O99.891 Other specified diseases and conditions complicating pregnancy; R00.0 Tachycardia, unspecified; O99.113 Other diseases of the blood and blood-forming organs and certain disorders involving the immune mechanism complicating pregnancy, third trimester; D68.51 Activated protein C resistance; O24.414 Gestational diabetes mellitus in pregnancy, insulin controlled; Z3A.37 37 weeks gestation of pregnancy
CPT/HCPCS: 36415; 71275; 76811; 76819; 80053; 81003; 81015; 82550; 82570; 83690; 83735; 83880; 84156; 84484; 85025; 85610; 85730; 87086; 87633; 87651; 93005; 93970; 94640; 96365; 96375; 97803; 99284; G0378; A9270; J0131; J0780; J2405; J7030; J7040; J7120; J7613; Q9967

== ENCOUNTER 2025-04-17 06:59 | Inpatient (IN) | payer OTHER, SELFPAY ==
--- NOTE | 2025-04-17 07:51 | PM.OBHP.IH.1 ---
OB HPI Date/Time Date of admission: 04/17/25 Date Patient Seen: 04/17/25 Time Patient Seen: 07:52 History of Present Condition Chief complaint: Induction JUDITH Calculator Estimated Delivery Date Method Current WG Current Estimate 05/01/25 LMP (Certain) 38w 0d Other Estimates 05/01/25 Ultrasound #1 38w 0d Estimated Gestational Age (weeks): 38 : 1 Narrative: Patient is a 25yo G1 @ 38wks presents to L&D for scheduled induction of labor due to gestational diabetes on insulin. Patient doing well. She is feeling better since thursday when she was diagnosed with a URI but is still having some upper respiratory congestion. requesting a respiratory treatment. reports history of exercise induced asthma and feels that she is having some wheezing currently. reports mild contractions, denies LOF/VB and reports good movement. care: good care Dating criteria OB: LMP confirmed by 1st trimester US Ultrasounds: normal mid trimester US Obstetrical complications: gestational diabetes Medical complications OB: none Indications Indication for induction OB: gestational diabetes Preadmission Labs Last OB Lab Results: Blood Type A Positive Today, 08:12 Antibody Screen Negative Today, 08:12 Hct, (36-46) 32.2 % L Today, 08:12 Hgb, (12.0-16.0) 11.0 g/dL L Today, 08:12 Hep Bs Antigen, (NEGATIVE) Negative s/c 10/17/24, 11:00 Hepatitis C Antibody, (NEGATIVE) Negative s/c 10/17/24, 11:00 Rubella Antibody, (>15) 37.2 IU/mL 10/17/24, 11:00 VZV IgG Antibody, (Non Reactive) Reactive 10/17/24, 11:00 Glucose 1 Hr 50 gm, (76-139) 156 mg/dL H 01/10/25, 10:38 Group B Strep (PCR) Neg for grp b strep 04/04/25, 12:00 -: Chlamydia screen: negative, Gonorrhea screen: negative and Urine: negative Genetic Screens: Cell-free DNA: Normal External Labs -: Urine: negative [facility] Medical History (Updated 04/14/25 @ 00:23 by Rachael Wilkins RN) Factor 5 Leiden mutation, heterozygous Ruptured appendix (~12/2023) Surgical History (Updated 08/30/24 @ 10:09 by Jacinta Chang RN) History of appendectomy Family History (Updated 08/30/24 @ 10:21 by Jacinta Chang RN) Mother Diabetes mellitus Ovarian cyst Gestational diabetes Grandmother Pacemaker Diabetes mellitus Family/Other Diabetes mellitus Father Diabetes mellitus Hypertension Aunt Ectopic Grandmother Factor V Leiden Social History marital status: number of children: 0 household members: spouse and friend(s) lives independently: Yes caregiver/support person: No housing: [facility] ([facility]) pets and animals: Yes (cats, dog) education level: high school 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[employer]) current occupational exposures/hazards: No special emili needs: No travel history: recent (domestic only) seatbelt use: always water heater temp set < 120 deg: Yes working smoke detector in home: Yes fire extinguisher in home: Yes carbon monox detector in home: Yes firearms in home: No do you feel safe at home: Yes second hand exposure: No alcohol intake: former (very occasionally when not ) substance use type: does not use during the past year weight has: decreased > 10 lbs (lost ~15 lb w/ appendicitis, back to around baseline now) well-balanced diet: about half the time daily servings fruits/ve-4 caffeine: Yes (occasional dirty maria e (1 shot espresso in maria e latte)) Type(s) of exercise: walking frequency: daily Meds Home Medications and Allergies Home Medications ?Medication ?Instructions ?Recorded ?Confirmed ?Type [id number] 400 mcg-om3 35 mg-dha 25 tab PO 08/30/24 04/10/25 History mg-epa 5 mg-fish oil chewable tablet blood sugar diagnostic (Blood #120 ea 01/30/25 04/10/25 Rx Glucose Test strips) blood-glucose meter (Blood Glucose #1 ea 01/30/25 04/10/25 Rx Monitoring kit) lancets #120 ea 01/30/25 04/10/25 Rx sertraline 50 mg tablet 50 mg PO DAILY 30 days #30 tabs 02/07/25 04/10/25 Rx hydroxyzine HCl 25 mg tablet 25 mg PO BEDTIME PRN anxiety #30 02/21/25 04/10/25 Rx tabs insulin NPH isoph U-100 human 100 20 unit (0.2 mL) SUBCUT QAM #15 mL 03/30/25 04/10/25 Rx unit/mL (3 mL) subcutaneous pen (Novolin N FlexPen) pen needle, diabetic 32 gauge x #100 ea 03/30/25 04/10/25 Rx 3/16 (Comfort EZ Pen [place]) blood-glucose sensor (Dexcom G7 #8 ea 03/31/25 04/10/25 Rx Sensor device) RSVPreF3 antigen-AS01E 0.5 ml IM ONCE mother #1 04/03/25 04/10/25 Rx adjuvant(PF) 120 mcg/0.5 mL IM ea suspension, kit acetaminophen 325 mg tablet 975 mg (3 x 325 mg) PO Q8HR PRN 04/14/25 Rx fever, pain #60 tabs ondansetron 4 mg disintegrating 4 mg PO Q8H PRN nausea and 04/14/25 Rx tablet vomiting #60 tabs phenol 1.4 % mucosal aerosol spray 2 spray mucous membrane Q4HR PRN 04/14/25 Rx (Chloraseptic Throat [place]) Sore Throat #20 mL prochlorperazine maleate 5 mg 5 mg PO BID PRN nausea and 04/14/25 Rx tablet (Compazine) vomiting #30 tabs prochlorperazine maleate 5 mg 5 mg PO BID PRN nausea and 04/14/25 Rx tablet (Compazine) vomiting 30 days #30 tabs quetiapine 25 mg tablet 25 mg PO BEDTIME 60 days #60 tabs 04/14/25 04/10/25 Rx quetiapine 25 mg tablet (Seroquel) 25 mg PO BEDTIME #30 tabs 04/14/25 Rx Allergies Allergy/AdvReac Type Severity Reaction Status Date / Time prazosin Allergy Severe Swelling Verified 04/17/25 10:08 of Lip/Tongue/Throat hydrocodone AdvReac Severe Vomiting Verified 04/17/25 10:08 oxycodone AdvReac Severe Vomiting Verified 04/17/25 10:08 citalopram AdvReac Mild Nightmare Verified 04/17/25 10:08 fig Allergy Intermediate Hives Uncoded 04/17/25 10:08 Review of Systems Constitutional Constitutional: Reports as per HPI OB Exam Vital signs Pulse Rate: 130 Narrative Exam Narrative: General- AAO x3, NAD lungs- unlabored breathing abdomen- gravid, soft LE- bilateral 1+ edema cervix- 1.5/70/-2 Presentation: vertex Estimated Weight (lbs): 6 Objective Labs 04/17/25 08:12 Assessment and Plan Assessment and Plan Assessment and Plan narrative: Patient is a 25yo G1 @ 38wks presents to L&D for scheduled induction of labor at 38wks for GDMA2 1. Scheduld induction of labor- admit to L&D - CEFM, IVF, regular diet - cervix- 1.5/60/-2, vertex - edmond's- EFW 6lbs - will start with misoprostol for cervical ripening, 50mcg buccal q 4 hours, then will augment with pitocin - pain analgesia per request - GBS negative 2. GDMA2 - on insulin NPH BID - will monitor glucose in active labor - discontinue insulin and glucose checks QID 3. Anxiety/depression - continue Seroquel 25mg qhs while inpatient and hydroxyzine 25mg qhs ordered prn anxiety - Peds notified and infant exposure - monitor mood closely dispo- anticipate Time-Based Coding :: [TOTAL MINUTES] spent with patient and on the chart (including review of chart, obtaining history, exam, reviewing outside data, placing orders, documenting exam and treatment plan, and counseling patient) on [DATE].
[2025-04-17 08:27] LABS: Add Manual Diff / Slide Review NO; Hematocrit 32.2 % (36-46); Hemoglobin 11.0 g/dL (12.0-16.0); Lymphocytes Absolute Auto 1300 /uL (1100-4500); Mean Corpuscular HGB Conc 34.3 % (30-36); Mean Corpuscular Hemoglobin 31.0 PG (26-34); Mean Corpuscular Volume 90.4 fL (80-100); Platelet Count 299 X10^3/uL (150-400)
[2025-04-17] MEDS: FAMOTIDINE 20 MG/2 ML VIAL IV (09:33)
[2025-04-17] MEDS: diphenhydrAMINE 50 MG/ML VIAL 25 MG IV (09:33)
[2025-04-17] MEDS: ONDANSETRON 4 MG/2 ML INJ IV ×3 (09:46→19:26)
[2025-04-17 10:06] VITALS: PULSE 130
[2025-04-17] MEDS: ALBUTEROL 2.5 MG/3 ML NEB (ADULT) INH ×2 (10:10→14:39)
[2025-04-17 10:11] VITALS: PULSE 125; RESP 20; O2SAT 99
[2025-04-17] MEDS: SCOPOLAMINE 1 PATCH TOP (10:47)
[2025-04-17] MEDS: LACTATED RINGERS 1,000 ML 100 ML IV ×2 (12:10→16:51)
[2025-04-17] MEDS: OXYTOCIN PREMIX 30 UNIT/500 ML PLAST..BAG IV (12:12)
[2025-04-17 14:40] VITALS: PULSE 122; RESP 18; O2SAT 99
--- NOTE | 2025-04-17 16:38 | PM.AN.REGBLK ---
Regional Block Pre-procedure PMH/ROS narrative: active labor pt requesting epidural PSH/Anesthesia history narrative: lsc appy with drain - c/o prolonged post operative sharp pain radiating out from drain site ASA Class: III Labs: Hct 32.2 % (36-46) L 04/17/25 08:12 Plt Count 299 X10^3/uL (150-400) 04/17/25 08:12 Medications: Current Medications Generic Name Dose Route Start Last Admin Trade Name Freq PRN Reason Stop Dose Admin Albuterol 2.5 mg 04/17/25 14:33 04/17/25 14:39 Albuterol 2.5 Mg/3 Ml Neb (Adult) INH 2.5 mg [id number] PRN Administration As needed Carboprost Tromethamine 250 mcg 04/17/25 07:50 Carboprost 250 Mcg/Ml Ampul IM Q90M PRN Bleeding Diphenhydramine HCl 25 mg 04/17/25 09:07 04/17/25 09:33 Diphenhydramine 50 Mg/Ml Vial IV 25 mg Q6HR PRN Administration Itching Famotidine 20 mg 04/17/25 09:07 04/17/25 09:33 Famotidine 20 Mg/2 Ml Vial IV 20 mg BID PRN Administration Dyspepsia Oxytocin/Lactated Ringer's 30 unit in 500 mls @ 200 mls/hr 04/17/25 07:50 Oxytocin Premix IV CONT PRN Bleeding Protocol Tranexamic Acid 1,000 mg/ 100 mls @ 600 mls/hr 04/17/25 07:50 Sodium Chloride IV NOW PRN Bleeding Oxytocin/Lactated Ringer's 30 unit in 500 mls @ 2 mls/hr 04/17/25 08:00 04/17/25 12:12 Oxytocin Premix IV 2 milliunit/min TITRATE IBIS 2 mls/hr Protocol Administration 2 MILLIUNIT/MIN Lactated Ringer's 1,000 mls @ 100 mls/hr 04/17/25 08:00 04/17/25 12:10 Lactated Ringers IV 04/17/25 17:59 100 mls/hr CONT IBIS Administration Lidocaine HCl 20 ml 04/17/25 07:50 Lidocaine 1% 20 Ml INJ INTRA-OP PRN Post Delivery Methylergonovine Maleate 0.2 mg 04/17/25 07:50 Methylergonovine 0.2 Mg Tablet PO Q6HR PRN Heavy Bleeding Methylergonovine Maleate 0.2 mg 04/17/25 07:50 Methylergonovine 0.2 Mg/Ml Vial IM NOW PRN Bleeding Mineral Oil 30 ml 04/17/25 07:50 Mineral Oil 30 Ml Udc TOP PRN PRN Version Misoprostol 800 mcg 04/17/25 07:50 Misoprostol 200 Mcg Tablet NJ NOW PRN Bleeding Misoprostol 400 mcg 04/17/25 07:50 Misoprostol 200 Mcg Tablet SL NOW PRN Bleeding Misoprostol 50 mcg 04/17/25 09:00 04/17/25 08:34 Misoprostol 25 Mcg Tablet PO 50 mcg QID IBIS Administration Naloxone HCl 0.2 mg 04/17/25 07:50 Naloxone 0.4 Mg/Ml Vial IV Q2MIN PRN Opiate Reversal Ondansetron HCl 4 mg 04/17/25 09:30 04/17/25 15:20 Ondansetron 4 Mg/2 Ml Inj IV 4 mg Q6HR PRN Administration Nausea And Vomiting Oxytocin 10 unit 04/17/25 07:50 Oxytocin 10 Unit/Ml Vial IM NOW PRN Bleeding Allergies: Allergies Allergy/AdvReac Type Severity Reaction Status Date / Time prazosin Allergy Severe Swelling Verified 04/17/25 10:08 of Lip/Tongue/Throat hydrocodone AdvReac Severe Vomiting Verified 04/17/25 10:08 oxycodone AdvReac Severe Vomiting Verified 04/17/25 10:08 citalopram AdvReac Mild Nightmare Verified 04/17/25 10:08 fig Allergy Intermediate Hives Uncoded 04/17/25 10:08 --: h and p obtained. RBA discussed. pt consent to proceed. pt in sitting position. draped and preop with sterile technique. v/s/s. l3 l4 interspace identified. lido 1% 3 cc skin wheel at l3 l4. tuohy introduced with MORE with saline at 6 cm. SAB 27 g pencil point enedle through epidural needle. + csf. - heme. denies paresthesias. removed SAB needle. threaded catheter to 12 cm. aspirated negative for heme and CSF. secured sterile. Procedure Insertion date: 04/17/25 Insertion time: 16:12 Prep/Local: betadine x3 (chloraprep) and 1% lidocaine (3cc) Interspace: l3 l4 Patient position: sitting Needle: 17 gauge Tuohy Loss of resistance with: saline MORE at (cm): 6 Catheter placed at SKIN (cm): 12 Sensory level: t8 Insertion: No CSF, No Blood, No Paresthesia with insertion, No Paresthesia with injection and No Test dose reaction Initial Medications TEST DOSE time: 16:13 TEST DOSE: 1.5% lidocaine with epinephrine 1:200k (mL): 3 BOLUS DOSE time: 16:15 BOLUS DOSE (mL): 3 BOLUS DOSE med: other (infusate : bupivacaine .0625% with fentanyl 2 mcg/ml) Infusion INFUSION: with fentanyl 2 mcg/mL and 0.0625% bupivacaine Initial rate (mL/hr): 8 Post-procedure Anesthesia date START: 04/17/25 Anesthesia time START: 16:01 Anesthesia date END: 04/17/25 Anesthesia time END: 23:02 Post-procedure Anesthesia Assessment: Yes CV function: HR/BP stable, Yes Resp function: RR/sat/airway adequate, Yes Post-op hydration adequate, Yes Pain control adequate, Yes Nausea & vomiting absent, Yes Temperature > 36 C, Yes Mental status appropriate and Yes Anesthesia complications
[2025-04-17] MEDS: CALCIUM CARBONATE 500 MG TAB 1000 MG PO (19:25)
[2025-04-17] MEDS: FENT 2MCG/ML BUPIV 0.125% EPI 200 MCG/100 ML PLAST..BAG 8 MCG EPIDURAL (21:50)
[2025-04-17] MEDS: MINERAL OIL 30 ML UDC TOP (23:00)
--- NOTE | 2025-04-17 23:30 | PM.OBPRVD ---
Events: Gestational Diabetes Labor & Delivery Delivery date: 04/17/25 Delivery Time: 23:02 Intrapartal Events: None Cervical ripening method: per misoprostal protocol Induction method: per pitocin protocol Delivery augmentation: rupture of membranes Delivery monitor: external FHT Route of delivery: L&D Laceration Description: None Estimated blood loss (mL): 150 Anesthesia Type: Epidural Complications: none Narrative: Shamika is a 25yo G1 now P1001 s/p uncomplicated . Patient presented to L&D for scheduled induction at 38wks due to gestational diabetes on insulin. She was given 1 dose of misoprostol then started on pitocin and amniotomy performed noting clear fluid. She received an epidural for pain control and quickly progressed to complete dilation and uncomplicated . Placental delivered spontaneously intact. Perineum inspected and noted to be intact. Healthy baby in room bonding with mother and father. Plan for aftercare: Routine care
[2025-04-18 00:59] VITALS: PULSE 115; RESP 18; O2SAT 99
[2025-04-18] MEDS: ALBUTEROL 2.5 MG/3 ML NEB (ADULT) INH ×3 (00:59→17:44)
[2025-04-18] MEDS: LANOLIN OINT 7 GM 1 APPLIC TOP (01:04)
[2025-04-18] MEDS: DERMOPLAST SPRAY 20% 60 ML 1 SPRAY TOP (01:04)
[2025-04-18] MEDS: ACETAMINOPHEN 325 MG TABLET 650 MG PO ×4 (01:05→20:02)
[2025-04-18] MEDS: IBUPROFEN 600 MG TABLET PO ×4 (01:07→20:02)
[2025-04-18] MEDS: ONDANSETRON 4 MG/2 ML INJ IV (01:14)
[2025-04-18] MEDS: guaiFENesin/DM 200 mg/20 mg/10 mL SYRUP PO ×2 (01:41→08:13)
[2025-04-18 06:10] VITALS: PULSE 112; RESP 16; O2SAT 98
[2025-04-18] MEDS: PHENOL LIQUID 100 SPRAYS/BOTTLE SPRAY MM ×7 (07:27→23:32)
[2025-04-18] MEDS: ONDANSETRON 4 MG ODT SL ×5 (07:48→23:32)
[2025-04-18 11:11] VITALS: PULSE 106; RESP 16; O2SAT 100
--- NOTE | 2025-04-18 13:20 | DI.RAD.S_ITS ---
PROCEDURE: XR CHEST 1V INDICATIONS: persistent productive cough TECHNIQUE: One view of the chest was acquired. COMPARISON: None. FINDINGS: Surgical changes and devices: None. Lungs and pleura: Lungs are clear. No pleural effusions or pneumothorax. Mediastinum: Mediastinal contours appear normal. Heart size is normal. Bones and chest wall: No suspicious bony lesions. Overlying soft tissues appear unremarkable. IMPRESSION: No acute cardiopulmonary abnormality is seen. Dictated by: Washington Bhakta M.D. on 04/18/2025 at 14:00 Approved by: Washington Bhakta M.D. on 04/18/2025 at 14:00
[2025-04-18] MEDS: guaiFENesin Solution 100 MG/5 ML UDC 200 MG PO ×3 (13:59→23:31)
[2025-04-18] MEDS: FLUTICASONE 120 SPRAY/16 GM SPRAY.SUSP NASAL (17:32)
--- NOTE | 2025-04-18 17:40 | PM.OBPN.1 ---
Subjective - OB Subjective Date Patient Seen: 04/18/25 Time Patient Seen: 13:00 Exam Vital Signs (past 8 hours): - 04/18/25 11:11 Pulse Rate 106 H Respiratory Rate 16 Pulse Oximetry 100 Oxygen Delivery Method Room Air Fraction of Inspired Oxygen 21 Fraction of Inspired Oxygen 21 SaO2/FiO2 Ratio 466 Oxygen Delivery Method Room Air Oxygen Flow Rate 0 Objective Labs 04/17/25 08:12 Labs: Laboratory Results - last 24 hr 04/17/25 04/17/25 04/17/25 18:38 19:44 20:52 POC Whole Bld Glucose 81 76 79 04/18/25 08:20 POC Whole Bld Glucose 130 H Assessment & Plan Time-Based Coding :: [TOTAL MINUTES] spent with patient and on the chart (including review of chart, obtaining history, exam, reviewing outside data, placing orders, documenting exam and treatment plan, and counseling patient) on [DATE].
[2025-04-18 17:45] VITALS: PULSE 98; RESP 16; O2SAT 98
[2025-04-19] MEDS: PHENOL LIQUID 100 SPRAYS/BOTTLE SPRAY MM ×5 (01:32→12:48)
[2025-04-19] MEDS: IBUPROFEN 600 MG TABLET PO ×3 (01:33→12:55)
[2025-04-19] MEDS: ACETAMINOPHEN 325 MG TABLET 650 MG PO ×3 (01:33→12:55)
[2025-04-19] MEDS: ONDANSETRON 4 MG ODT SL ×3 (03:36→12:47)
[2025-04-19] MEDS: guaiFENesin Solution 100 MG/5 ML UDC 200 MG PO ×4 (03:46→17:58)
[2025-04-19] MEDS: VENLAFAXINE ER 37.5 MG CAP PO (13:44)
--- NOTE | 2025-04-19 17:49 | P.DS_ITS ---
Discharge Providers Provider Date of admission: 04/17/25 06:59 Discharge Date: 04/19/25 Primary care physician: Georgiana Gorman MD Consults: 04/17/25 07:50 Consult to Anesthesiology Urgent Comment: Consulting Provider: Anesthesiologist Reason for consultation: Epidural 04/17/25 23:29 Consult to Cigarette Machine Operator Routine Comment: Discharge provider: Katie Mcwilliams DO Summary Hospital Course Date Patient Seen: 04/19/25 Time Patient Seen: 14:00 Diagnoses: anxiety Hospital Course: Patient is a 25yo G1 now P1001 presented to L&D for scheduled induciton of labor at 38wks duet o GDMA on insulin. SHe had an unocmplicated labor course and progressed to an uncomplicated . her course was complicated by viral URI and conjunctivits. She had aCXR done was was negative for PNA. She will be discharged home on Benzonatate to take for persistent dry cough and flonase for congestion. she also was noted to have worsening depression/anxiety symptoms. she has not done well with SSRIs in the past so VEnlafaxine 37.5mg ER given while inpatient- patient tolerated this well and wishes to continue outpatient for managemtn of her anxiety. Rx sent and will follow up in 2wks to reassess symptoms. patient discharged home in good ocndition with healthy baby. Peripartum Data Infant Delivery Method: Natural Vaginal Laceration Description: None Procedures: complications: none Status at Discharge Cognitive/behavioral status at discharge: oriented Functional status at discharge: independent ambulation Overall status at discharge: patient is back to baseline Time Spent with Patient Time attestation: Total time spent providing and/or coordinating discharge services: Time spent: Less than 30 minutes Objective Labs 04/17/25 08:12 Labs: Laboratory Results - last 24 hr 04/18/25 20:16 POC Whole Bld Glucose 124 H Exam Vital Signs (past 8 hours): Fraction of Inspired Oxygen 21 SaO2/FiO2 Ratio 466 Oxygen Delivery Method Room Air Oxygen Flow Rate 0 Narrative Exam Narrative: General- AAO x3, fatigued abdoemn- soft lochjia minimal slight viral conjunctivitis noted lungs- CTAB Discharge Plan Discharge Plan Patient Disposition: Home Discharge orders & Medications Prescriptions: New venlafaxine 37.5 mg Capsule,Extended Release 24hr 37.5 mg PO DAILY 30 Days Qty: 30 3RF benzonatate 100 mg capsule 100 mg PO BID PRN (Reason: cough) Qty: 30 0RF fluticasone propionate 50 mcg/actuation [place],Suspension 1 spray intranasal DAILY PRN (Reason: Congestion) Qty: 16 0RF Continued acetaminophen 325 mg tablet See Rx Instructions .ROUTE .COMPLEX Qty: 60 0RF Dose Instruction: Take 3 tablets (975 mg) by mouth every 8 hours As Needed for fever, pain Rx Instructions: Take 3 tablets (975 mg) by mouth every 8 hours As Needed for fever, pain hydroxyzine HCl 25 mg tablet 25 mg PO BEDTIME PRN (Reason: anxiety) Qty: 30 2RF [id number] oil 400 mcg-35 mg -25 mg-5 mg tablet,chewable PO quetiapine 25 mg tablet 25 mg PO BEDTIME 60 Days Qty: 60 0RF Chloraseptic Throat [place] 1.4 % Aerosol,[place] 2 spray mucous membrane Q4HR PRN (Reason: Sore Throat) Qty: 20 0RF prochlorperazine maleate [Compazine] 5 mg tablet 5 mg PO BID PRN (Reason: nausea and vomiting) Qty: 30 0RF quetiapine [Seroquel] 25 mg tablet 25 mg PO BEDTIME Qty: 30 0RF Discontinued (DME) Blood Glucose Test Strip See Rx Instructions .ROUTE .MEDSUPPLY Qty: 120 3RF Rx Instructions: Testing blood sugar 4x daily fasting and 2 hours after each meal (DME) lancets Mis See Rx Instructions .ROUTE .MEDSUPPLY Qty: 120 3RF Rx Instructions: Testing blood sugar 4x daily Fasting and 2 hours after each meal (DME) blood-glucose meter [Blood Glucose Monitoring] Kit See Rx Instructions .ROUTE .MEDSUPPLY Qty: 1 0RF Rx Instructions: Testing blood surgar 4x daily Fasting and 2 hours after each meal Novolin N FlexPen 100 unit/mL (3 mL) insulin pen 20 unit SUBCUT QAM Qty: 15 2RF (DME) pen needle, diabetic [Comfort EZ Pen [place]] 32 gauge x 3/16 needle See Rx Instructions .Route Qty: 100 0RF Rx Instructions: for use with insulin pen (DME) Shop[employer] G7 Sensor Device See Rx Instructions .ROUTE .MEDSUPPLY Qty: 8 4RF Rx Instructions: use to check blood sugars and change out every 10 days RSVPreF3 antigen-AS01E (PF) 120 mcg/0.5 mL suspension for reconstitution 0.5 ml IM ONCE Qty: 1 0RF sertraline 50 mg tablet 50 mg PO DAILY 30 Days Qty: 30 4RF prochlorperazine maleate [Compazine] 5 mg tablet 5 mg PO BID PRN (Reason: nausea and vomiting) 30 Days Qty: 30 0RF ondansetron 4 mg tablet,disintegrating 4 mg PO Q8H PRN (Reason: nausea and vomiting) Qty: 60 0RF Follow up/Referrals: Katie Mcwilliams DO [Physician, Gynecology] Referral Note: You are scheduled for two follow up appointments with Dr. Mcwilliams. The first is May 03@10:00am. The second is May 30 @3:45pm. Please check-in 15min prior to your appointments. Georgiana Gorman MD [Primary Care Provider, Family Practice] Diet/Activity/Treatments Diet: Regular Activity: pelvic rest x 6 weeks Skin/Wound/Dressing Care Report to your healthcare provider any signs of infection, such as:: chills, fever, increased pain, unusual drainage and unusual redness Visit Report/Discharge Packet Stand Alone Forms: Discharge: Care, Patient Portal/API, Stroke Signs & Symptoms Discharge Data Primary Care Provider: Georgiana Gorman
[2025-04-19 18:30] VITALS: BP 118/80; PULSE 102; RESP 16; TEMP 36.4
== END 2025-04-19 18:10 | disposition home or self-care (01) | DRG 806 ==
PROVIDERS: Admitting Provider Obstetrics & Gynecology; PCP Family Medicine; Referring Provider Obstetrics & Gynecology; Visit Provider Obstetrics & Gynecology
DX: O24.424 Gestational diabetes mellitus in childbirth, insulin controlled (principal); O99.12 Other diseases of the blood and blood-forming organs and certain disorders involving the immune mechanism complicating childbirth; D68.51 Activated protein C resistance; Z37.0 Single live birth; Z3A.38 38 weeks gestation of pregnancy; O99.344 Other mental disorders complicating childbirth; F41.9 Anxiety disorder, unspecified; F32.A Depression, unspecified; O99.52 Diseases of the respiratory system complicating childbirth; J06.9 Acute upper respiratory infection, unspecified; O99.892 Other specified diseases and conditions complicating childbirth; H10.9 Unspecified conjunctivitis
CPT/HCPCS: 59050; 59200; 71045; 82962; 85025; 86850; 86900; 86901; 94640; A9270; G0379; J1200; J2405; J2590; J7120; J7613

== ENCOUNTER → 2025-04-21 11:43 | Outpatient (CLI) | payer OTHER, SELFPAY ==
--- NOTE | 2025-04-21 11:45 | DI.RAD.S_ITS ---
PROCEDURE: XR CHEST 2V INDICATIONS: SOB, cough, worsening TECHNIQUE: 2 views of the chest were acquired. COMPARISON: [facility], CR, XR CHEST 1V, 04/18/2025, 13:23. FINDINGS: Surgical changes and devices: None. Lungs and pleura: Lungs are clear. No pleural effusions or pneumothorax. Mediastinum: Mediastinal contours are normal. Heart size is normal. Bones and chest wall: No suspicious bony abnormalities. Soft tissues appear unremarkable. IMPRESSION: No acute cardiopulmonary abnormality is seen. Dictated by: Sidney Thomas M.D. on 04/21/2025 at 14:29 Approved by: Sidney Thomas M.D. on 04/21/2025 at 14:29
== END ==
PROVIDERS: PCP Family Medicine; Referring Provider Family Medicine; Visit Provider Family Medicine
DX: R05.9 Cough, unspecified (principal); R09.81 Nasal congestion; R11.10 Vomiting, unspecified
CPT/HCPCS: 71046